=== PATIENT | male | born 1975 | race Two or more races ===

== ENCOUNTER 2017-08-29 07:21 | Day surgery (SDC) | payer BC, MEDICARE, OTHER ==
[~2017-08-29] VITALS: Ht 170.2 cm; Wt 59.0 kg
[2017-08-29] VITALS (7 sets, daily range): BP systolic 104–129; BP diastolic 66–87
[~2017-08-29 07:21] MED LIST: HYOSCYAMIN0.125 MG/1 PO; LIBRAX1 EA ORAL; LOMOTIL TABLET1 EACH ORAL; LR 1000ml 1,000 ML IVLG SCH; NORCO1 E1 ORAL; [UNRECOGNIZED DRUG - OTHER] PO; [UNRECOGNIZED DRUG - OTHER] PO; [UNRECOGNIZED DRUG - OTHER] PO
--- NOTE | 2017-08-29 07:54 | Anethesia Preoperative Eval ---
Anesthesia Pre-op PMH/ROS General Date of Evaluation: Aug 29, 2017 Time of Evaluation: 07:52 Anesthesiologist: jennifer ASA Score: ASA 3 Mallampati Score Class I : Soft palate, uvula, fauces, pillars visible Class II: Soft palate, uvula, fauces visible Class III: Soft palate, base of uvula visible Class IV: Only hard plate visible Mallampati Classification: Class II Surgeon: brittany Diagnosis: abdominal pain Surgical Procedure: egd/colonoscopy Anesthesia History: none Social History: smoking - former smoker Family History: no anesthesia problems Allergies: Coded Allergies: No Known Allergies (Unverified , 08/29/17) Medications: see eMAR Past Medical History Gastrointestinal/Genitourinary: Reports: other - sclerosing cholangitis, ulcerative colitis, liver disease Neurologic/Psychiatric: Reports: depression/anxiety Anesthesia Pre-op Phys. Exam Physician Exam Last Vital Signs Date Time Temp Pulse Resp B/P (MAP) Pulse Ox O2 Delivery O2 Flow Rate FiO2 08/29/17 08:08 97.9 74 18 104/66 98 Room Air Constitutional: NAD Neurologic: CN 2-12 intact Cardiovascular: RRR Respiratory: CTA Gastrointestinal: S/NT/ND Airway Exam Mallampati Score: Class II MO: full Neck: stiff TMD: 2fb ROM: limited Teeth: intact Anesthesia Pre-op A/P Risk Assessment & Plan Assessment: asa3 Plan: mac Status Change Before Surgery: No Pre-Antibiotics Drug: KERRY Kurtz Aug 29, 2017 07:54
[2017-08-29] MEDS ORDERED: COLESTID ORAL (08:06)
[2017-08-29] MEDS ORDERED: DIPENTUM250 MG PO (08:06)
--- NOTE | 2017-08-29 08:47 | Short Stay Surgery H&P ---
History of Present Illness History of Present Illness Chief Complaint History of colitis, abdominal pains, HPI Arsh Grey is a 42 year old male who was admitted on for Abdominal Pain, Colitis and gere for follow up for status of colitis. Patient History Allergies: Coded Allergies: No Known Allergies (Unverified , 08/29/17) PAST MEDICAL HISTORY: (1) Ulcerative colitis (2) Cholangitis Past Surgeries: Social History: Medication History Scheduled Chlordiazepoxide/Clidinium (Librax Capsule), 1 EA ORAL TID, (Reported) Colestipol HCl (Colestid), 2 GM ORAL DAILY, (Reported) Diphenoxylate Hcl/Atropine (Lomotil Tablet), 2 TAB ORAL TID, (Reported) Hyoscyamine Sulfate (Hyoscyamine Sulfate), 0.125 MG PO DAILY, (Reported) Olsalazine Sodium (Dipentum), 500 MG PO DAILY, (Reported) [eurso forte], 500 MG PO DAILY, (Reported) Scheduled PRN Acetaminophen/Hydrocodone ([place]averstraw 7.5-325 Tablet), 1 TAB ORAL Q6H PRN for For Pain, (Reported) Review of Systems Cardiovascular: Reports: no symptoms Respiratory: Reports: no symptoms Skeletal: Reports: no symptoms Gastrointestinal: Reports: other Neurologic: Reports: no symptoms Endocrine: Reports: no symptoms Hematologic: Reports: no symptoms Physical Exam Vital Signs Last Vital Signs Date Time Temp Pulse Resp B/P (MAP) Pulse Ox O2 Delivery O2 Flow Rate FiO2 08/29/17 08:08 97.9 74 18 104/66 98 Room Air Skin: normal HENT: normal Heart: normal Lungs: normal Abdomen: abnormal Extremities: normal Genitourinary: normal Plan Plan of Care Upper and lower GI endoscopy and biopsies Preop Interventions None. Summary of Findings See the reports Final Diagnosis: Attestation Are the patient's medical conditions optimized for surgery? Attestation Response: yes ADRIANA ROSA Aug 29, 2017 08:47
--- NOTE | 2017-08-29 08:48 | Pre-Procedure Note/Attestation ---
Pre-Procedure Note/Attestation Complete Prior to Procedure Planned Procedure: left Procedure Narrative: Endoscopic examination of the upper and lower GI tract. Indications for Procedure Pre-Operative Diagnosis: R/O colitis/cancer/peptic ulcer Attestation I attest that I discussed the nature of the procedure; its benefits; risks and complications; and alternatives (and the risks and benefits of such alternatives ), prior to the procedure, with the patient (or the patient's legal financial services sales representative). I attest that, if there was a reasonable possibility of needing a blood transfusion, the patient (or the patient's legal financial services sales representative) was given the [place] Department [employer] standardized written summary, pursuant to the Daljit Ke Blood Safety Act ([place] Health and Safety Code # 1645, as amended). I attest that I re-evaluated the patient just prior to the surgery and that there has been no change in the patient's H&P, except as documented below: MOESAID Aug 29, 2017 08:48
[2017-08-29] MEDS ORDERED: Propofol 200mg/20ml IV ONE (09:00)
[2017-08-29] MEDS ORDERED: LR 1000ml ONE (09:00)
[2017-08-29] MEDS ORDERED: Lidocaine 1% MPF 10mg/ml 5ml ONE (09:00)
[2017-08-29] MEDS ORDERED: LR 1000ml 1,000 ML IVLG SCH (09:13)
[2017-08-29] MEDS ORDERED: Atropine Inj 1mg/10ml Syr IV PRN (09:15)
[2017-08-29] MEDS ORDERED: Midazolam 2mg/2ml Inj IVP PRN (09:15)
[2017-08-29] MEDS ORDERED: fentaNYL 100 mcg/2 mL IV PRN (09:15)
[2017-08-29] MEDS ORDERED: DiphenhydrAMINE 50mg/ml Inj IVP PRN (09:15)
--- NOTE | 2017-08-29 09:32 | Endoscopy Procedure Note ---
Endoscopy Procedure Note Indication for Procedure: ABDOMINAL PAIN/ HISTORY OF COLITIS Procedures Performed: EGD - Compltely normal upper GI endoscopy, random biopsy done from gastric body., colonoscopy - Severe colitis with stricture at splenic flexure and large polypoid lesion at 70 Am from anal opening highly suggestive of CA biopsied. Multiple biopsies obtained from left colon Scope could not be advance beyond splenic flexure due to stricture. Patient is being referred for total colectomy. Specimen: yes Pt Tolerated Procedure Well: Yes Estimated Blood Loss: minimal Anesthesiologist: Dr. Cardona Anesthesia: moderate sedation Medication Given: see anesthesia record Implant(s) used?: No 50 yrs or older w/o bx or poly: No 10yrs. F/U not recommended: Yes 10 yrs. F/U needed: Yes 18 years or older w/prev. colo: No <3yrs. since last colonoscopy: No Med reason:<3 yrs.: System Reason:<3 yrs.: Last colonoscopy >= to 3yrs: No ADRIANA ROSA Aug 29, 2017 09:32
--- NOTE | 2017-08-29 09:33 | Discharge Instructions ---
Discharge Instructions Discharge Instructions Follow up with: See the docotor in office after one week For Congestive Heart Failure Reminder Report to your physician any weight gain of 5 pounds or more in one week. ADRIANA ROSA Aug 29, 2017 09:33
--- NOTE | 2017-08-29 09:49 | Immediate Post-Op Evaluation ---
Immediate Post-Op Evalulation Immediate Post-Op Evalulation Procedure: egd/colonoscopy Date of Evaluation: Aug 29, 2017 Time of Evaluation: 09:49 IV Fluids: 550ml lr Blood Products: none Estimated Blood Loss: negligible Blood Pressure Systolic: 129 Blood Pressure Diastolic: 85 Pulse Rate: 83 Respiratory Rate: 18 O2 Sat by Pulse Oximetry: 100 Temperature (Fahrenheit): 98.7 Pain Score (1-10): 0 Nausea: No Vomiting: No Complications none Patient Status: awake, reacts, patent Hydration Status: adequate Drug: KERRY Kurtz Aug 29, 2017 09:49
--- NOTE | 2017-08-29 09:51 | 48 Hour Post Anesthesia Eval ---
Post Anesthesia Evaluation Procedure: egd/colonoscopy Date of Evaluation: Aug 29, 2017 Time of Evaluation: 09:51 Blood Pressure Systolic: 122 0: 77 Pulse Rate: 83 Respiratory Rate: 18 Temperature (Fahrenheit): 98.7 O2 Sat by Pulse Oximetry: 99 Airway: patent Nausea: No Vomiting: No Pain Intensity: 0 Hydration Status: adequate Cardiopulmonary Status: stable Mental Status/LOC: patient returned to baseline Post-Anesthesia Complications: none Follow-up care needed: N/A KERRY THURMAN Aug 29, 2017 09:51
--- NOTE | 2017-08-29 22:30 | Procedure Note ---
DATE OF PROCEDURE: 08/29/2017 PROCEDURE: Left colonoscopy with multiple biopsies. SURGEON: Nica Parikh M.D. PREOPERATIVE DIAGNOSIS: History of chronic colitis. POSTOPERATIVE DIAGNOSES: 1. Significantly severe left colitis with the evidence of large polypoid lesion at the level of 70 cm from anal opening, highly suspicious of underlying adenocarcinoma. 2. Multiple stricture in the left colon and the scope could not be passed through the splenic flexure. Multiple biopsies were also obtained from left colon. MEDICATION USED: Per Dr. Steele, anesthesiologist. INSTRUMENT: GIF Olympus video colonoscope. DESCRIPTION OF PROCEDURE: The patient after arriving in the endoscopy unit, was told about risks and benefits of the procedure, which he accepted and signed informed consent. He was then put on the left lateral decubitus position. After adequate IV sedation, the scope was gently passed through the anal opening, introduced into the rectum, anorectal area. This area revealed significantly inflamed with easy friability and noted numerous exudative process all over consistent with severe colitis. The scope was gradually passed through a rather redundant and strictured colon in different areas, which revealed evidence of continuation of severe colitis. Finally, it reached to the level of 70 centimeter from the anal area, whereby a very large multilobulated polyp was found, which was highly suggestive of underlying adenocarcinoma. Multiple biopsies from this lesion obtained, which was quite friable as well. Finally, the scope was passed through the area through very significantly stricture section of the left colon, only was able to reach the splenic flexure. After at this point, the scope could not be advanced. As I mentioned, multiple biopsies from different parts of the colon was obtained and subsequently, the procedure was terminated. The patient is going to be referred with total colectomy with possible rectal anal pouch to the general surgeons. Nica Parikh M.D. DR: MADDI JOB#: [id number] CC:
--- NOTE | 2017-08-29 22:30 | Procedure Note ---
DATE OF PROCEDURE: 08/29/2017 SURGEON: Nica Parikh M.D. PROCEDURE: Esophagogastroduodenoscopy with biopsy. PREOPERATIVE DIAGNOSIS: Abdominal pain. POSTOPERATIVE DIAGNOSIS: Completely normal upper gastrointestinal endoscopy. Biopsy was taken per random per gastric body. MEDICATION USED: Per Dr. Cardona, anesthesiologist. INSTRUMENT: GIF Olympus upper GI video endoscope. DESCRIPTION OF PROCEDURE: The patient after arriving in the endoscopy unit, was told about risks and benefits of the procedure, which he accepted and signed informed consent. At this point, he was put on the left lateral decubitus position. After adequate IV sedation, the scope was gently passed through the cricopharyngeal area, it was lodged into the upper esophagus, and gradually advanced towards gastroesophageal junction. The entire length of the esophagus was normal. No evidence of any abnormality was found. GE junction also looked normal. At this time, the scope was advanced into the stomach. Gastric cavity was distended. The areas of the fundus and the body and the antrum were examined and there was no any particular abnormality, evidence of major gastritis, polyps, tumors etc. One random biopsy from gastric body obtained. Subsequently, the scope was passed through the pylorus. First and second portion of duodenum were found to be completely normal. Finally, the scope was pulled out and the procedure was terminated. The patient tolerated the procedure well. Nica Parikh M.D. DR: MADDI JOB#: [id number] CC:
== END 2017-08-29 11:00 | disposition home or self-care (01) ==
LOC: GAS 07:21
DX: K63.5 Polyp of colon (principal); K51.90 Ulcerative colitis, unspecified, without complications; F32.9 Major depressive disorder, single episode, unspecified; F41.9 Anxiety disorder, unspecified; Z87.891 Personal history of nicotine dependence; K29.50 Unspecified chronic gastritis without bleeding; B96.81 Helicobacter pylori [H. pylori] as the cause of diseases classified elsewhere
CPT/HCPCS: 43239; 45380; J2704; J7120; 94003; 94150

== ENCOUNTER 2017-10-08 08:13 | Outpatient (CLI) | payer MEDICARE ==
[~2017-10-08 08:13] MED LIST changes: +COLESTID ORAL; +DIPENTUM250 MG PO; -LR 1000ml 1,000 ML IVLG SCH
--- NOTE | 2017-10-08 15:39 | Diagnostic Imaging Report ---
Clinical Indication: Abdominal pain Technique: Patient given oral and rectal contrast. IV administration nonionic contrast. Venous phase spiral acquisition obtained through the abdomen and pelvis. Multiplanar reconstructions were generated. Total dose length product 499.55 mGycm. CTDIvol(s) 10.18 mGy. Dose reduction achieved using automated exposure control Comparison: none Findings: There is some image degradation due to respiratory motion artifact Somewhat unusual appearance to the colon, which is diffusely upper limits of normal caliber and featureless. There is wall thickening of portions of the sigmoid and of the descending colon. Unusual distribution of contrast is seen in the splenic flexure, where there is low attenuation material between the contrast column and the colonic wall. Suspect that this is wall adherent stool. No evidence of surrounding abscess. No evidence of diverticulosis or diverticulitis. Pericolonic nodes in the along the course of the colon are prominent. The appendix is enlarged, measuring 15 mm diameter near the bulbous tip. There is no infiltration of the periappendiceal fat, however. It contains a small amount of fluid centrally. No contrast is seen within the appendix. No small bowel distention or small bowel wall thickening. No free or loculated intraperitoneal air or fluid is evident. The terminal ileum wall is not thickened. The liver is mildly hypoattenuating. Small subcentimeter low-attenuation lesions are seen scattered throughout the liver. There are questionably tiny gallstones in the gallbladder neck. The gallbladder is mildly distended but not thick walled. No biliary ductal dilatation. The pancreas, spleen, adrenals, kidneys are unremarkable. No retroperitoneal or mesenteric mass or adenopathy. No pelvic mass or adenopathy. The included lung bases demonstrate some atelectasis or scarring on the left. The bones are unremarkable. Impression: Generalized featureless appearance of the colon with areas of wall thickening. Per discussion with referring physician, patient has long-standing history of ulcerative colitis. Findings are therefore presumably related to such. There is also borderline pericolonic adenopathy, presumably related to the ulcerative colitis Enlarged appendix, particularly the bulbous tip, with out evidence of periappendiceal inflammation. Per discussion referring physician, patient is asymptomatic with regards to the right lower quadrant, so findings most likely represent appendiceal involvement with ulcerative colitis Mild fatty hepatic change Subcentimeter low-attenuation hepatic lesions, too small to characterize, most likely benign simple cysts or bile hamartomas. No further follow-up necessary Equivocal cholelithiasis Left basilar pulmonary parenchymal scarring or atelectasis. Findings discussed by phone with Dr. Hodge at the time of interpretation The CT scanner at [facility] is accredited by the [employer] and the scans are performed using protocols designed to limit radiation exposure to as low as reasonably achievable to attain images of sufficient resolution adequate for diagnostic evaluation.
== END 2017-10-08 10:13 | disposition home or self-care (01) ==
LOC: CAT 08:13
DX: R10.9 Unspecified abdominal pain (principal); K80.20 Calculus of gallbladder without cholecystitis without obstruction; K51.90 Ulcerative colitis, unspecified, without complications
CPT/HCPCS: 74177; Q9967

== ENCOUNTER 2017-12-24 09:52 | Inpatient (IN) | payer MEDICARE ==
[~2017-12-24] VITALS: Ht 170.2 cm; Wt 53.1 kg
[2017-12-24] MEDS ORDERED: Heparin 2000 units/Ns 1000ml INJ PRN (10:00)
[2017-12-24] MEDS ORDERED: Lidocaine 1% Plain 30 ml INJ PRN (10:00)
[2017-12-24 10:30] VITALS: BP 125/85
[2017-12-24 10:47] LABS: BASOPHILS % (AUTO) 1.5 % (0.0-2.0); EOSINOPHILS % (AUTO) 2.5 % (0.0-3.0); HEMATOCRIT 33.1 % (42.0-52.0); HEMOGLOBIN 10.7 G/DL (14.2-18.0); LYMPHOCYTES % (AUTO) 33.7 % (20.0-45.0); MEAN CORPUSCULAR VOLUME 85 FL (80-99); MONOCYTES % (AUTO) 9.7 % (1.0-10.0); NEUTROPHILS % (AUTO) 52.6 % (45.0-75.0); PLATELET COUNT 390 K/UL (150-450); RED BLOOD COUNT 3.91 M/UL (4.70-6.10); RED CELL DISTRIBUTION WIDTH 12.8 % (11.6-14.8); WHITE BLOOD COUNT 7.2 K/UL (4.8-10.8)
[2017-12-24 11:08] LABS: ALANINE AMINOTRANSFERASE 66 U/L (12-78); ALBUMIN 3.3 G/DL (3.4-5.0); ALBUMIN/GLOBULIN RATIO 0.8 (1.0-2.7); ALKALINE PHOSPHATASE 551 U/L (46-116); ANION GAP 9 mmol/L (5-15); ASPARTATE AMINO TRANSFERASE 59 U/L (15-37); BILIRUBIN,TOTAL 0.3 MG/DL (0.2-1.0); BLOOD UREA NITROGEN 12 mg/dL (7-18); CALCIUM 8.6 MG/DL (8.5-10.1); CARBON DIOXIDE 28 MMOL/L (21-32); CHLORIDE 104 MMOL/L (98-107); CREATININE 0.8 MG/DL (0.55-1.30); POTASSIUM 3.1 MMOL/L (3.5-5.1); SODIUM 140 MMOL/L (136-145)
[2017-12-24] MEDS: Neomycin Sulfate 500mg Tab ORAL SCH ×3 (11:39→20:11)
[2017-12-24 12:00] VITALS: BP 137/91
[2017-12-24] MEDS ORDERED: Nulytely 4L ORAL SCH (12:00)
[2017-12-24 12:10] LABS: APPEARANCE,URINE CLEAR; BILIRUBIN, URINE NEGATIVE (NEGATIVE); GLUCOSE, URINE (UA) NEGATIVE (NEGATIVE); KETONES,URINE NEGATIVE (NEGATIVE); LEUKOCYTE ESTERASE ,URINE NEGATIVE (NEGATIVE); NITRITE,URINE NEGATIVE (NEGATIVE); PH,URINE 6 (4.5-8.0); PROTEIN,URINE NEGATIVE (NEGATIVE); UROBILINOGEN,URINE NORMAL MG/DL (0.0-1.0)
[2017-12-24 12:15] LABS: COLOR,URINE YELLOW
--- NOTE | 2017-12-24 14:59 | Diagnostic Imaging Report ---
Indication: Chest pain Comparison: None A single view chest radiograph was obtained. Findings: Cardiomediastinal appearance is within normal limits for age. Pulmonary vascularity is appropriate. The diaphragmatic contour is smooth and costophrenic angles are sharp. No pleural effusions are identified. The bones are unremarkable. Impression: No acute findings
--- NOTE | 2017-12-24 15:54 | Anethesia Preoperative Eval ---
Anesthesia Pre-op PMH/ROS General Date of Evaluation: December 24, 2017 Time of Evaluation: 15:50 Anesthesiologist: ASA Score: ASA 2 Mallampati Score Class I : Soft palate, uvula, fauces, pillars visible Class II: Soft palate, uvula, fauces visible Class III: Soft palate, base of uvula visible Class IV: Only hard plate visible Mallampati Classification: Class II Surgeon: lewis Diagnosis: ulcerative colitis Surgical Procedure: laparoscopic total colectomy, creation of judge pouch Anesthesia History: none Family History: no anesthesia problems Allergies: Coded Allergies: No Known Allergies (Unverified , 08/29/17) Medications: see eMAR Past Medical History Cardiovascular: Denies: HTN, CAD, [place], valve dz, arrhythmia, other Pulmonary: Denies: asthma, COPD, ELIAZAR, other Gastrointestinal/Genitourinary: Reports: other - ulcerative colitis, sclerosing cholangitis; Denies: GERD, CRI, ESRD Neurologic/Psychiatric: Denies: dementia, CVA, depression/anxiety, TIA, other Endocrine: Denies: DM, hypothyroidism, steroids, other HEENT: Denies: cataract (L), cataract (R), glaucoma, [place] (L), [place] (R), other Hematology/Immune: Reports: anemia - hct 33.1; Denies: DVT, bleeding disorder, other Anesthesia Pre-op Phys. Exam Physician Exam Last Vital Signs Date Time Temp Pulse Resp B/P (MAP) Pulse Ox O2 Delivery O2 Flow Rate FiO2 12/24/17 12:00 98.0 69 20 137/91 100 Room Air 98.0 Constitutional: NAD Neurologic: CN 2-12 intact Cardiovascular: RRR Respiratory: CTA Airway Exam Mallampati Score: Class I MO: full ROM: full Teeth: intact Dentures: no upper, no lower Anesthesia Pre-op A/P Labs Hematology Test 12/24/17 10:34 White Blood Count 7.2 K/UL (4.8-10.8) Red Blood Count 3.91 M/UL (4.70-6.10) L Hemoglobin 10.7 G/DL (14.2-18.0) L Hematocrit 33.1 % (42.0-52.0) L Mean Corpuscular Volume 85 FL (80-99) Mean Corpuscular Hemoglobin 27.4 PG (27.0-31.0) Mean Corpuscular Hemoglobin Concent 32.4 G/DL (32.0-36.0) Red Cell Distribution Width 12.8 % (11.6-14.8) Platelet Count 390 K/UL (150-450) Mean Platelet Volume 7.0 FL (6.5-10.1) Neutrophils (%) (Auto) 52.6 % (45.0-75.0) Lymphocytes (%) (Auto) 33.7 % (20.0-45.0) Monocytes (%) (Auto) 9.7 % (1.0-10.0) Eosinophils (%) (Auto) 2.5 % (0.0-3.0) Basophils (%) (Auto) 1.5 % (0.0-2.0) Coagulation Test 12/24/17 10:34 Prothrombin Time 10.0 SEC (9.30-11.50) Prothromb Time International Ratio 1.0 (0.9-1.1) Activated Partial Thromboplast Time 26 SEC (23-33) Chemistry Test 12/24/17 10:34 Sodium Level 140 MMOL/L (136-145) Potassium Level 3.1 MMOL/L (3.5-5.1) L Chloride Level 104 MMOL/L (98-107) Carbon Dioxide Level 28 MMOL/L (21-32) Anion Gap 9 mmol/L (5-15) Blood Urea Nitrogen 12 mg/dL (7-18) Creatinine 0.8 MG/DL (0.55-1.30) Estimat Glomerular Filtration Rate > 60 mL/min (>60) Glucose Level 93 MG/DL (74-106) Calcium Level 8.6 MG/DL (8.5-10.1) Total Bilirubin 0.3 MG/DL (0.2-1.0) Aspartate Amino Transf (AST/SGOT) 59 U/L (15-37) H Alanine Aminotransferase (ALT/SGPT) 66 U/L (12-78) Alkaline Phosphatase 551 U/L (46-116) H Total Protein 7.5 G/DL (6.4-8.2) Albumin 3.3 G/DL (3.4-5.0) L Globulin 4.2 g/dL Albumin/Globulin Ratio 0.8 (1.0-2.7) L Risk Assessment & Plan Assessment: ASA 2, okay to proceed Plan: Myra Vicente M.D. December 24, 2017 15:54
[2017-12-24 16:00] VITALS: BP 127/89
--- NOTE | 2017-12-24 16:05 | Diagnostic Imaging Report ---
Indication: watermaster venous access Findings: After the indications, procedure, risks, complications, and alternatives of the procedure were explained, written informed consent was obtained. The left upper extremity was prepped with alcohol. All elements of maximal sterile barrier technique were followed including usage of a cap, mask, sterile gown, sterile gloves, hand hygiene and a large sterile sheet. Sonographic evaluation of the upper extremity was performed demonstrating a patent and compressible basilic vein. Access was obtained under real-time ultrasound guidance (with utilization of sterile gel and sterile probe cover) and digital image was saved and archived. An .018 wire was introduced. Needle exchanged for a 5 Azeri peel-away sheath. Measurements were obtained. A 5 Azeri dual-lumen Power PICC line catheter was cut to 45 cm and introduced over the wire. Peel-away sheath and wire were removed.Catheter was secured to the skin using 2-0 Prolene suture. Both ports aspirate and flush easily. Fluoroscopic images show distal tip in the superior vena cava. Total fluoroscopic time 0.2 minutes Impression: Successful placement of an upper extremity PICC line catheter
[2017-12-24] MEDS: D5 1/2NS w/KCl 20mEq 1,000 ML IV SCH (17:21)
[2017-12-24 20:00] VITALS: BP 122/77
[2017-12-24] MEDS ORDERED: Dyna-Hex 2% Top Sol 2oz TOPIC SCH (20:00)
[2017-12-25] VITALS (16 sets, daily range): BP systolic 100–127; BP diastolic 65–85
[2017-12-25] MEDS: Ampicillin/Sulbactam Sod 3 GM in NS 110 ML IV SCH ×5 (00:07→23:50)
[2017-12-25] MEDS: D5 1/2NS w/KCl 20mEq 1,000 ML IV SCH ×3 (04:30→23:34)
[2017-12-25] MEDS ORDERED: Heparin 5000 units/ml inj SUBQ ONE (07:00)
--- NOTE | 2017-12-25 07:45 | History and Physical ---
History of Present Illness Present Illness HPI Mr. Grey is a very pleasant 42 year old male with history of long standing ulcerative colitis. He was initially referred to me a few months back for surgical evaluation. He has had severe ulcerative colitis for many years which has been managed by his GI Dr. Nica Parikh. During most recent colonoscopy he was noted to have worsening colitis with biopsies demonstrating dysplastic changes. When I first met Mr. Grey he described his long history of dealing with UC. His quality of life has been changed, he has a hard time keeping weight on/ failure to thrive as an adult, and his symptoms are life altering. CT scan was done and demonstrated severe renteria colitis. on exam he was thin but otherwise healthy. his symptoms were constant abdominal discomfort and necessity for multiple BM's per day. his symptoms are so severe that sometimes he cannot leave the house. patient was initially seen in my office and worked up over the course of a few months for surgery which was planned for 12/25/2017. Allergies: Coded Allergies: No Known Allergies (Unverified , 08/29/17) Medication History Scheduled Diphenoxylate Hcl/Atropine (Lomotil Tablet), 2 TAB ORAL TID, (Reported) Hyoscyamine Sulfate (Hyoscyamine Sulfate), 0.125 MG PO TID, (Reported) Olsalazine Sodium (Dipentum), 500 MG PO DAILY, (Reported) [eurso forte], 500 MG PO DAILY, (Reported) Scheduled PRN Acetaminophen/Hydrocodone ([place] 7.5-325 Tablet), 1 TAB ORAL Q6H PRN for For Pain, (Reported) Discontinued Medications Chlordiazepoxide/Clidinium (Librax Capsule), 1 EA ORAL TID, (Reported) Discontinued Reason: Pt stopped taking med Colestipol HCl (Colestid), 2 GM ORAL DAILY, (Reported) Discontinued Reason: Pt stopped taking med Patient History History Provided By: Patient, Medical Record, PMD Healthcare decision maker N Resuscitation status Full Code Advanced Directive on File No Past Medical/Surgical History Past Medical/Surgical History: (1) Ulcerative colitis (2) Sclerosing cholangitis (3) Ulcerative colitis (4) Cholangitis Review of Systems All Other Systems: negative except mentioned in HPI Physical Exam General Appearance: WD/WN, no apparent distress, alert Lines, tubes and drains: PICC HEENT: normocephalic, atraumatic, anicteric, mucous membranes moist, PERRL Neck: normal inspection Respiratory/Chest: lungs clear, normal breath sounds, no respiratory distress, no accessory muscle use Cardiovascular/Chest: normal peripheral pulses, normal rate Abdomen: normal bowel sounds, non tender, soft, no organomegaly, no mass Genitourinary/Rectal: normal genital exam Extremities: normal range of motion, non-tender, normal inspection, no calf tenderness, normal capillary refill, non-pitting Skin Exam: normal pigmentation, warm/dry Neurologic: fisher pound net or trap II-XII grossly normal, alert, oriented x 3 Last 24 Hour Vital Signs Date Time Temp Pulse Resp B/P (MAP) Pulse Ox O2 Delivery O2 Flow Rate FiO2 12/25/17 00:00 97.7 76 18 111/65 98 97.7 12/24/17 20:00 97.6 73 18 122/77 99 97.6 12/24/17 16:00 98.1 70 19 127/89 100 Room Air 98.1 12/24/17 12:00 98.0 69 20 137/91 100 Room Air 98.0 12/24/17 10:30 97.8 71 18 125/85 100 Room Air 97.8 Intake and Output 12/24/17 12/25/17 19:00 07:00 Intake Total 700 ml 5010 ml Output Total 500 ml 2100 ml Balance 200 ml 2910 ml Intake Oral 600 ml IV Total 100 ml 1730 ml Other 3280 ml Output Urine Total 500 ml 950 ml Stool Total 1150 ml # Voids 2 5 # Bowel Movements 1 11 Laboratory Tests Test 12/24/17 10:34 12/24/17 11:40 White Blood Count 7.2 K/UL (4.8-10.8) Red Blood Count 3.91 M/UL (4.70-6.10) L Hemoglobin 10.7 G/DL (14.2-18.0) L Hematocrit 33.1 % (42.0-52.0) L Mean Corpuscular Volume 85 FL (80-99) Mean Corpuscular Hemoglobin 27.4 PG (27.0-31.0) Mean Corpuscular Hemoglobin Concent 32.4 G/DL (32.0-36.0) Red Cell Distribution Width 12.8 % (11.6-14.8) Platelet Count 390 K/UL (150-450) Mean Platelet Volume 7.0 FL (6.5-10.1) Neutrophils (%) (Auto) 52.6 % (45.0-75.0) Lymphocytes (%) (Auto) 33.7 % (20.0-45.0) Monocytes (%) (Auto) 9.7 % (1.0-10.0) Eosinophils (%) (Auto) 2.5 % (0.0-3.0) Basophils (%) (Auto) 1.5 % (0.0-2.0) Prothrombin Time 10.0 SEC (9.30-11.50) Prothromb Time International Ratio 1.0 (0.9-1.1) Activated Partial Thromboplast Time 26 SEC (23-33) Sodium Level 140 MMOL/L (136-145) Potassium Level 3.1 MMOL/L (3.5-5.1) L Chloride Level 104 MMOL/L (98-107) Carbon Dioxide Level 28 MMOL/L (21-32) Anion Gap 9 mmol/L (5-15) Blood Urea Nitrogen 12 mg/dL (7-18) Creatinine 0.8 MG/DL (0.55-1.30) Estimat Glomerular Filtration Rate > 60 mL/min (>60) Glucose Level 93 MG/DL (74-106) Calcium Level 8.6 MG/DL (8.5-10.1) Total Bilirubin 0.3 MG/DL (0.2-1.0) Aspartate Amino Transf (AST/SGOT) 59 U/L (15-37) H Alanine Aminotransferase (ALT/SGPT) 66 U/L (12-78) Alkaline Phosphatase 551 U/L (46-116) H Total Protein 7.5 G/DL (6.4-8.2) Albumin 3.3 G/DL (3.4-5.0) L Globulin 4.2 g/dL Albumin/Globulin Ratio 0.8 (1.0-2.7) L Urine Color Yellow Urine Appearance Clear Urine pH 6 (4.5-8.0) Urine Specific [place] 1.020 (1.005-1.035) Urine Protein Negative (NEGATIVE) Urine Glucose (UA) Negative (NEGATIVE) Urine Ketones Negative (NEGATIVE) Urine Occult Blood Negative (NEGATIVE) Urine Nitrite Negative (NEGATIVE) Urine Bilirubin Negative (NEGATIVE) Urine Urobilinogen Normal MG/DL (0.0-1.0) Urine Leukocyte Esterase Negative (NEGATIVE) Height (Feet): 5 Height (Inches): 7.00 Weight (Pounds): 120 Medications Current Medications Medications (Trade) Dose Ordered Sig/Felipe Route PRN Reason Start Time Stop Time Status Last Admin Dose Admin Ampicillin Sodium/ Sulbactam Sodium 3 gm/Sodium Chloride 110 ml @ 220 mls/hr EVERY 6 HOURS IV 12/25/17 00:00 01/01/18 00:00 12/25/17 05:23 Chlorhexidine Gluconate (Renée-Hex 2%) 1 applic DAILY@2000 TOPIC 12/24/17 20:00 01/23/18 19:59 12/24/17 20:11 Dextrose/ Electrolytes 1,000 ml @ 100 mls/hr Q10H IV 12/24/17 18:00 01/23/18 17:59 12/25/17 04:30 Heparin Sodium/ Sodium Chloride (Heparin 2000 units/Ns 1000ml premix) 2,000 unit ONCE PRN INJ PICC LINE INSERTION 12/24/17 10:00 01/23/18 09:59 Lidocaine HCl (Xylocaine 1% 30ml) 30 ml ONCE PRN INJ PICC LINE INSERTION 12/24/17 10:00 01/23/18 09:59 Metronidazole 100 ml @ 100 mls/hr EVERY 6 HOURS IV 12/25/17 00:00 01/01/18 00:00 12/25/17 05:25 Ondansetron HCl (Zofran) 4 mg Q4H PRN IVP Nausea & Vomiting 12/24/17 10:00 01/23/18 09:59 Potassium Chloride (K-Dur) 40 meq ONCE ORAL 12/24/17 13:00 01/23/18 12:59 12/24/17 13:06 Zolpidem Tartrate (Ambien) 5 mg HSPRN PRN ORAL Insomnia 12/24/17 11:15 12/31/17 11:14 Assessment/Plan Problem List: (1) Ulcerative colitis Assessment & Plan: severe ulcerative colitis with dysplasia. multiple prior colonoscopies. most recent with worsening pancolitis and dysplasia. over the course of the past few months we have discussed treatment options. after all options were presented to Mr. Grey, he has expressed desire for continent ileostomy. -to OR 12/25/2017 -pre op 12/24/2017 -PICC + TPN -NPO -IV fluids -Prep and Abx -IV Abx -Consent ICD Codes: K51.919 - Ulcerative colitis SNOMED: [id number] Qualifiers: Qualified Codes: K51.018 - Ulcerative (chronic) pancolitis with other complication Status: stable Gareth Hodge December 25, 2017 07:45
--- NOTE | 2017-12-25 07:46 | Pre-Procedure Note/Attestation ---
Pre-Procedure Note/Attestation Complete Prior to Procedure Planned Procedure: not applicable Procedure Narrative: Laparoscopic assisted total proctocolectomy, APR, BCIR Indications for Procedure Pre-Operative Diagnosis: ulcerative colitis with dysplasia Attestation I attest that I discussed the nature of the procedure; its benefits; risks and complications; and alternatives (and the risks and benefits of such alternatives ), prior to the procedure, with the patient (or the patient's legal billing customer service representative). I attest that, if there was a reasonable possibility of needing a blood transfusion, the patient (or the patient's legal billing customer service representative) was given the [facility] standardized written summary, pursuant to the [place] Blood Safety Act ([place] Health and Safety Code # 1645, as amended). I attest that I re-evaluated the patient just prior to the surgery and that there has been no change in the patient's H&P, except as documented below: Gareth Hodge December 25, 2017 07:46
[2017-12-25] MEDS ORDERED: Lidocaine 1% Plain 30 ml INJ ONE ×2 (08:26→11:35)
[2017-12-25] MEDS ORDERED: Lidocaine 1% MPF 10mg/ml 5ml ONE (08:33)
[2017-12-25] MEDS ORDERED: Sodium Chloride 10ml vial INJ ONE (08:33)
[2017-12-25] MEDS ORDERED: Propofol 200mg/20ml IV ONE (08:33)
[2017-12-25] MEDS ORDERED: LR 1000ml 1,000 ML IVLG SCH (08:42)
[2017-12-25] MEDS ORDERED: Atropine Inj 1mg/10ml Syr IV PRN (08:45)
[2017-12-25] MEDS ORDERED: DiphenhydrAMINE 50mg/ml Inj IVP PRN ×2 (08:45→14:45)
[2017-12-25] MEDS ORDERED: Midazolam 2mg/2ml Inj IVP PRN (08:45)
[2017-12-25] MEDS ORDERED: Labetalol 5mg/ml 20ml vial IV PRN (08:45)
[2017-12-25] MEDS ORDERED: Ketorolac 30mg Inj IV PRN ×2 (08:45)
[2017-12-25] MEDS ORDERED: oxyCODONE HCL/Acetaminophen 5/325mg ORAL PRN (08:45)
[2017-12-25] MEDS ORDERED: Metoclopramide 10mg/2ml Inj IVP PRN (08:45)
[2017-12-25] MEDS ORDERED: LORazepam Inj 2mg/ml 1ml IV PRN (08:45)
[2017-12-25] MEDS ORDERED: Norco 5mg/325mg tab ORAL PRN (08:45)
[2017-12-25] MEDS ORDERED: fentaNYL 100 mcg/2 mL IV PRN (08:45)
[2017-12-25] MEDS ORDERED: HYDROcodone/Acetamin 7.5/325 tab ORAL PRN (08:45)
[2017-12-25] MEDS ORDERED: Bupivacaine 0.25% Inj 30ml INJ ONE (08:48)
[2017-12-25] MEDS ORDERED: Bacitracin 50000 Units Vial ONE (08:48)
[2017-12-25] MEDS ORDERED: NeoSporin Gu Irrig 1ml Amp IRRIG ONE (08:48)
[2017-12-25] MEDS ORDERED: EPINEPHrine 1mg/1ml Amp ONE (08:48)
[2017-12-25] MEDS ORDERED: Dexamethasone 4mg/ml vial ONE (08:52)
[2017-12-25] MEDS ORDERED: fentaNYL 100 mcg/2 mL IV ONE ×2 (08:56→10:45)
[2017-12-25] MEDS ORDERED: Heparin 5000 units/ml inj SUBQ SCH (09:00)
[2017-12-25] MEDS ORDERED: Zemuron 50mg/5ml Inj IV ONE (09:03)
--- NOTE | 2017-12-25 09:11 | Immediate Post-Op Evaluation ---
Immediate Post-Op Evalulation Immediate Post-Op Evalulation Procedure: Laparoscopic Assisted Procto-Colectomy Date of Evaluation: December 25, 2017 Time of Evaluation: 13:40 IV Fluids: 1200 LR Blood Products: 0 Estimated Blood Loss: 50 Urinary Output: 400 Blood Pressure Systolic: 118 Blood Pressure Diastolic: 77 Pulse Rate: 91 Respiratory Rate: 16 O2 Sat by Pulse Oximetry: 100 Temperature (Fahrenheit): 97.6 Pain Score (1-10): 3 Nausea: No Vomiting: No Complications 0 Patient Status: awake, reacts, patent, extubated, none Hydration Status: adequate Drug: Received Scheduled Antibiotics Given Within 1 Hr of Incision: Yes Time Given: 09:01 Luciano Kim MD December 25, 2017 09:11
[2017-12-25] MEDS ORDERED: Acetaminophen (Non formulary) 100 ML IV ONE (10:15)
[2017-12-25] MEDS ORDERED: Metoprolol 5mg/5ml Inj ONE (13:17)
[2017-12-25] MEDS: Hydromorphone 0.5mg/0.5ml inj IVP PRN ×2 (13:44→14:39)
[2017-12-25] MEDS ORDERED: PCA Morphine 1mg/ml 30 ML IV ONE (14:40)
[2017-12-25] MEDS ORDERED: Milk of Magnesia 30ml Ud ORAL PRN (14:45)
[2017-12-25] MEDS: PCA Morphine 1mg/ml 30 ML IV PRN (14:47)
[2017-12-25] MEDS ORDERED: Rate Change PCA 1 Each MISC PRN (15:00)
[2017-12-25] MEDS ORDERED: Naloxone 0.4mg/ml Inj IVP PRN (15:00)
--- NOTE | 2017-12-25 15:22 | Brief Operative Note ---
Immediate Post Operative Note Operative Note Pre-op Diagnosis: ulcerative colitis with dysplasia Procedure: 1. total abdominal colectomy 2. brook ileostomy creation Surgeon: lewis Pasta Press Operator: alberto Anesthesiologist: hailey Anesthesia: general Specimen: yes Complications: none Condition: stable Fluids: see records Estimated Blood Loss: volume - 100 Drains: none Implant(s) used?: No Gareth Hodge December 25, 2017 15:22
[2017-12-25] MEDS ORDERED: PCA Education Pamphlet MISC ONE (16:00)
--- NOTE | 2017-12-25 18:42 | Consultation ---
History of Present Illness General Date patient seen: December 25, 2017 Present Illness HPI 42 y/o M with hx of long standing severe UC, sclerosing cholangitis admitted electively for surgical intervention for his severe UC. Patient had failure to thrive, a recent colonoscopy which showed worsening colitis and biopsies demonstrating dysplastic changes. CT abd/p showed severe pancolitis. Patient underwent total abdominal colectomy and brook ileostomy creation today. Afebrile, no leukocytosis Started on periop Unasyn and Flagyl. Allergies: Coded Allergies: No Known Allergies (Unverified , 08/29/17) Medication History Scheduled Diphenoxylate Hcl/Atropine (Lomotil Tablet), 2 TAB ORAL TID, (Reported) Hyoscyamine Sulfate (Hyoscyamine Sulfate), 0.125 MG PO TID, (Reported) Olsalazine Sodium (Dipentum), 500 MG PO DAILY, (Reported) [eurso forte], 500 MG PO DAILY, (Reported) Scheduled PRN Acetaminophen/Hydrocodone ([place] 7.5-325 Tablet), 1 TAB ORAL Q6H PRN for For Pain, (Reported) Discontinued Medications Chlordiazepoxide/Clidinium (Librax Capsule), 1 EA ORAL TID, (Reported) Discontinued Reason: Pt stopped taking med Colestipol HCl (Colestid), 2 GM ORAL DAILY, (Reported) Discontinued Reason: Pt stopped taking med Patient History Healthcare decision maker N Resuscitation status Full Code Advanced Directive on File No Patient History Narrative Pmhx: as above Shx: reviewed Fhx: non contributory Review of Systems All Other Systems: negative except mentioned in HPI Physical Exam Physical Exam Narrative General Appearance: WD/WN, no apparent distress, alert Lines, tubes and drains: PICC HEENT: normocephalic, atraumatic, anicteric, mucous membranes moist, PERRL Neck: normal inspection Respiratory/Chest: lungs clear, normal breath sounds, no respiratory distress, no accessory muscle use Cardiovascular/Chest: normal peripheral pulses, normal rate Abdomen: normal bowel sounds, non tender, soft, no organomegaly, no mass; surgical dressings in place Extremities: normal range of motion, non-tender, normal inspection, no calf tenderness, normal capillary refill, non-pitting Skin Exam: normal pigmentation, warm/dry Neurologic: teachers aide II-XII grossly normal, alert, oriented x 3 Last 24 Hour Vital Signs Date Time Temp Pulse Resp B/P (MAP) Pulse Ox O2 Delivery O2 Flow Rate FiO2 12/25/17 16:20 18 12/25/17 16:00 98.4 110 18 113/77 99 Nasal Cannula 3.0 98.4 12/25/17 15:50 18 12/25/17 15:40 98.7 100 18 120/80 99 Nasal Cannula 3.0 98.7 12/25/17 15:25 98.8 102 18 109/79 100 Nasal Cannula 3.0 98.8 12/25/17 15:25 18 12/25/17 15:12 18 12/25/17 14:57 18 12/25/17 14:47 18 12/25/17 14:47 97.6 12/25/17 14:47 98.8 100 16 110/72 100 Nasal Cannula 3.0 98.8 12/25/17 14:39 97 16 116/73 100 Nasal Cannula 3.0 12/25/17 14:39 97.6 12/25/17 14:26 97.6 12/25/17 14:26 97.6 12/25/17 14:25 88 16 112/75 100 Nasal Cannula 3.0 12/25/17 14:10 89 16 114/77 100 Nasal Cannula 3.0 12/25/17 14:01 84 16 114/75 100 Nasal Cannula 3.0 12/25/17 14:01 97.6 12/25/17 13:44 84 16 127/82 100 Simple Mask 8.0 12/25/17 13:40 91 16 121/80 100 Simple Mask 8.0 12/25/17 13:35 93 16 125/77 100 Simple Mask 8.0 12/25/17 13:31 207.7 91 16 100 12/25/17 13:29 99.6 91 16 118/77 100 Simple Mask 8.0 99.6 12/25/17 08:00 98.2 18 122/85 97 Room Air 98.2 12/25/17 04:00 97.8 71 17 100/74 98 97.8 12/25/17 00:00 97.7 76 18 111/65 98 97.7 12/24/17 20:00 97.6 73 18 122/77 99 97.6 Intake and Output 12/24/17 12/25/17 19:00 07:00 Intake Total 700 ml 5010 ml Output Total 500 ml 2100 ml Balance 200 ml 2910 ml Intake Oral 600 ml IV Total 100 ml 1730 ml Other 3280 ml Output Urine Total 500 ml 950 ml Stool Total 1150 ml # Voids 2 5 # Bowel Movements 1 11 Height (Feet): 5 Height (Inches): 7.00 Weight (Pounds): 120 Medications Current Medications Medications (Trade) Dose Ordered Sig/Felipe Route PRN Reason Start Time Stop Time Status Last Admin Dose Admin Acetaminophen (Tylenol) 650 mg Q6H PRN ORAL MILD BRKTHRU PAIN / T> 100.5 12/25/17 14:45 01/24/18 14:44 Al Hydroxide/Mg Hydroxide (Mylanta) 15 ml Q6H PRN ORAL DYSPEPSIA 12/25/17 14:45 01/24/18 14:44 Ampicillin Sodium/ Sulbactam Sodium 3 gm/Sodium Chloride 110 ml @ 220 mls/hr EVERY 6 HOURS IV 12/25/17 00:00 01/01/18 00:00 12/25/17 17:37 Dextrose/ Electrolytes 1,000 ml @ 100 mls/hr Q10H IV 12/25/17 16:00 01/24/18 15:59 12/25/17 16:48 Diphenhydramine HCl (Benadryl) 12.5 mg Q6H PRN IVP Itching/Pruritis 12/25/17 14:45 01/24/18 14:44 Heparin Sodium/ Sodium Chloride (Heparin 2000 units/Ns 1000ml premix) 2,000 unit ONCE PRN INJ PICC LINE INSERTION 12/24/17 10:00 01/23/18 09:59 Magnesium Hydroxide (Mom) 30 ml BIDPRN PRN ORAL Constipation 12/25/17 14:45 01/24/18 14:44 Metronidazole 100 ml @ 100 mls/hr EVERY 6 HOURS IV 12/25/17 00:00 01/01/18 00:00 12/25/17 17:37 Miscellaneous Medication (DISPATCHER SHIP PILOT Rate Change) 1 ea DAILY PRN MISC rate change 12/25/17 15:00 12/27/17 14:59 Miscellaneous Medication (DISPATCHER SHIP PILOT shift volume) 1 ea Q12HR@0700,1900 MISC 12/25/17 19:00 12/27/17 18:59 Morphine Sulfate 30 ml @ 0 mls/hr Q24H PRN IV For Pain 12/25/17 15:00 12/27/17 14:59 12/25/17 14:47 Morphine Sulfate (Morphine Sulfate) 4 mg Q3H PRN SUBQ Severe Pain (Pain Scale 7-10) 12/25/17 15:00 12/27/17 14:59 Naloxone HCl (Narcan) 0.1 mg Q1M PRN IVP RR<10/min OR SBP<90 mmHg 12/25/17 15:00 12/27/17 14:59 Ondansetron HCl (Zofran) 4 mg Q6H PRN IVP Nausea & Vomiting 12/25/17 14:45 01/24/18 14:44 Zolpidem Tartrate (Ambien) 5 mg HSPRN PRN ORAL Insomnia 12/24/17 11:15 12/31/17 11:14 Assessment/Plan Assessment/Plan Abx: Unasyn 12/25- Flagyl 12/25- Assessment: Long standing Severe UC -s/p total abdominal colectomy and brook ileostomy creation 12/25 FTT 2ry to above Afebrile, no leukocytosis sclerosing cholangitis Plan: -Continue perio-op Unasyn and Flagyl for the next 24-48hrs -f/u cx -Monitor CBC/BMP, temperatures -wound care -aspiration precautions Thank you for this consultation. Will continue to follow along with you. Discussed with RN and Dr Hodge. Fatimah Steen M.D. December 25, 2017 18:42
[2017-12-25] MEDS: PCA shift volume MISC SCH (19:12)
[2017-12-25] MEDS ORDERED: Dextrose 10% 1,000 ML IV PRN (20:00)
[2017-12-25] MEDS ORDERED: Fat Emulsion Iv 20% 216 ML in Tpn 1,560 ML IV SCH (20:00)
[2017-12-25] MEDS ORDERED: Fat Emulsion Iv 20% 250 ML IV SCH (21:00)
--- NOTE | 2017-12-25 21:12 | 48 Hour Post Anesthesia Eval ---
Post Anesthesia Evaluation Procedure: Laparoscopic Assisted Procto-Colectomy Date of Evaluation: December 25, 2017 Time of Evaluation: 21:10 Blood Pressure Systolic: 123 0: 77 Pulse Rate: 108 Respiratory Rate: 18 Temperature (Fahrenheit): 98.4 O2 Sat by Pulse Oximetry: 99 Airway: patent Nausea: No Vomiting: No Pain Intensity: 3 Hydration Status: adequate Cardiopulmonary Status: Stable Mental Status/LOC: patient returned to baseline Follow-up Care/Observations: 0 Post-Anesthesia Complications: 0 Follow-up care needed: N/A Luciano Kim MD December 25, 2017 21:12
[2017-12-26] VITALS: BP 128/82
[2017-12-26] MEDS ORDERED: NovoLOG Insulin Flexpen SUBQ SCH
[2017-12-26] MEDS: PCA Morphine 1mg/ml 30 ML IV PRN ×4 (01:06→21:49)
[2017-12-26] MEDS: Morphine Sulfate 4mg/ml Inj SUBQ PRN ×4 (01:09→20:05)
[2017-12-26] MEDS: D5 1/2NS w/KCl 20mEq 1,000 ML IV SCH ×3 (01:09→21:51)
[2017-12-26 04:00] VITALS: BP 136/72
[2017-12-26] MEDS: Ampicillin/Sulbactam Sod 3 GM in NS 110 ML IV SCH ×3 (05:57→18:45)
[2017-12-26] MEDS: PCA shift volume MISC SCH ×2 (07:00→19:18)
[2017-12-26 08:00] VITALS: BP 111/64
[2017-12-26 08:11] LABS: BASOPHILS % (AUTO) 0.3 % (0.0-2.0); HEMATOCRIT 27.7 % (42.0-52.0); HEMOGLOBIN 9.3 G/DL (14.2-18.0); MEAN CORPUSCULAR VOLUME 83 FL (80-99); MONOCYTES % (AUTO) 8.9 % (1.0-10.0); NEUTROPHILS % (AUTO) 80.9 % (45.0-75.0); PLATELET COUNT 292 K/UL (150-450); RED BLOOD COUNT 3.31 M/UL (4.70-6.10); RED CELL DISTRIBUTION WIDTH 12.7 % (11.6-14.8)
[2017-12-26 08:13] LABS: ANION GAP 7 mmol/L (5-15); BLOOD UREA NITROGEN 8 mg/dL (7-18); CALCIUM 7.9 MG/DL (8.5-10.1); CARBON DIOXIDE 28 MMOL/L (21-32); CHLORIDE 103 MMOL/L (98-107); CREATININE 0.7 MG/DL (0.55-1.30); POTASSIUM 3.4 MMOL/L (3.5-5.1); SODIUM 138 MMOL/L (136-145)
[2017-12-26 10:28] LABS: FERRITIN 22 NG/ML (8-388)
[2017-12-26 10:54] LABS: % IRON SATURATION 8 % (15-50); IRON 26 ug/dL (50-175); TOTAL IRON BINDING CAPACITY 333 ug/dL (250-450)
[2017-12-26 12:00] VITALS: BP 108/69
[2017-12-26] MEDS: Heparin 5000 units/ml inj SUBQ SCH ×2 (14:45→21:50)
[2017-12-26 16:00] VITALS: BP 118/75
--- NOTE | 2017-12-26 17:03 | Infectious Diseases Prog Note ---
Assessment/Plan Assessment/Plan Abx: Unasyn 12/25- Flagyl 12/25- Assessment: Long standing Severe UC -s/p total abdominal colectomy and brook ileostomy creation 12/25 Leukocytosis, likely reactive/post-op FTT 2ry to above Afebrile sclerosing cholangitis Plan: -Continue perio-op Unasyn and Flagyl #3 for the next 24-48 hrs -trend wbc -f/u cx -Monitor CBC/BMP, temperatures -wound care -aspiration precautions Thank you for this consultation. Will continue to follow along with you. Discussed with RN and Dr Hodge. Subjective Allergies: Coded Allergies: No Known Allergies (Unverified , 08/29/17) Subjective afebrile WBC 15 Objective Vital Signs Last 24 Hour Vital Signs Date Time Temp Pulse Resp B/P (MAP) Pulse Ox O2 Delivery O2 Flow Rate FiO2 12/26/17 16:00 97.8 91 20 118/75 97 Room Air 97.8 12/26/17 16:00 20 12/26/17 14:40 20 12/26/17 12:00 20 12/26/17 12:00 98.6 81 20 108/69 96 Room Air 98.6 12/26/17 08:00 20 12/26/17 08:00 98.0 85 20 111/64 98 Room Air 98.0 12/26/17 05:20 98.7 12/26/17 04:29 18 12/26/17 04:00 98.6 95 18 136/72 98 Room Air 98.6 12/26/17 01:36 98.7 12/26/17 01:06 18 12/26/17 01:05 18 12/26/17 00:11 18 12/26/17 00:00 98.7 97 18 128/82 99 Room Air 98.7 12/25/17 21:12 209.1 108 18 99 12/25/17 20:00 98.9 105 18 104/69 99 Nasal Cannula 3.0 98.9 12/25/17 20:00 18 Height (Feet): 5 Height (Inches): 7.00 Weight (Pounds): 120 Objective General Appearance: WD/WN, no apparent distress, alert Lines, tubes and drains: PICC HEENT: normocephalic, atraumatic, anicteric, mucous membranes moist, PERRL Neck: normal inspection Respiratory/Chest: lungs clear, normal breath sounds, no respiratory distress, no accessory muscle use Cardiovascular/Chest: normal peripheral pulses, normal rate Abdomen: normal bowel sounds, non tender, soft, no organomegaly, no mass; surgical dressings in place Extremities: normal range of motion, non-tender, normal inspection, no calf tenderness, normal capillary refill, non-pitting Skin Exam: normal pigmentation, warm/dry Neurologic: pyrotechnics press tender II-XII grossly normal, alert, oriented x 3 Microbiology Date/Time Source Procedure Growth Status 12/24/17 11:25 Nasal Nares MRSA Culture - Final NO METHICILLIN RESISTANT STAPH AUREUS... Complete Laboratory Tests Test 12/26/17 05:10 12/26/17 10:15 White Blood Count 15.0 K/UL (4.8-10.8) H Red Blood Count 3.31 M/UL (4.70-6.10) L Hemoglobin 9.3 G/DL (14.2-18.0) L Hematocrit 27.7 % (42.0-52.0) L Mean Corpuscular Volume 83 FL (80-99) Mean Corpuscular Hemoglobin 28.1 PG (27.0-31.0) Mean Corpuscular Hemoglobin Concent 33.6 G/DL (32.0-36.0) Red Cell Distribution Width 12.7 % (11.6-14.8) Platelet Count 292 K/UL (150-450) Mean Platelet Volume 7.2 FL (6.5-10.1) Neutrophils (%) (Auto) 80.9 % (45.0-75.0) H Lymphocytes (%) (Auto) 10.0 % (20.0-45.0) L Monocytes (%) (Auto) 8.9 % (1.0-10.0) Eosinophils (%) (Auto) 0.0 % (0.0-3.0) Basophils (%) (Auto) 0.3 % (0.0-2.0) Sodium Level 138 MMOL/L (136-145) Potassium Level 3.4 MMOL/L (3.5-5.1) L Chloride Level 103 MMOL/L (98-107) Carbon Dioxide Level 28 MMOL/L (21-32) Anion Gap 7 mmol/L (5-15) Blood Urea Nitrogen 8 mg/dL (7-18) Creatinine 0.7 MG/DL (0.55-1.30) Estimat Glomerular Filtration Rate > 60 mL/min (>60) Glucose Level 122 MG/DL (74-106) H Calcium Level 7.9 MG/DL (8.5-10.1) L Iron Level 26 ug/dL (50-175) L Total Iron Binding Capacity 333 ug/dL (250-450) Percent Iron Saturation 8 % (15-50) L Unsaturated Iron Binding 307 ug/dL (112-346) Ferritin 22 NG/ML (8-388) Folate 5.2 NG/ML (8.6-58.9) L Carcinoembryonic Antigen Pending CA 19-9 Antigen Pending Current Medications Medications (Trade) Dose Ordered Sig/Felipe Route PRN Reason Start Time Stop Time Status Last Admin Dose Admin Acetaminophen (Tylenol) 650 mg Q6H PRN ORAL MILD BRKTHRU PAIN / T> 100.5 12/25/17 14:45 01/24/18 14:44 Al Hydroxide/Mg Hydroxide (Mylanta) 15 ml Q6H PRN ORAL DYSPEPSIA 12/25/17 14:45 01/24/18 14:44 Ampicillin Sodium/ Sulbactam Sodium 3 gm/Sodium Chloride 110 ml @ 220 mls/hr EVERY 6 HOURS IV 12/25/17 00:00 01/01/18 00:00 12/26/17 12:33 Chlorhexidine Gluconate (Renée-Hex 2%) 1 applic DAILY@2000 TOPIC 12/26/17 20:00 01/25/18 19:59 Dextrose/ Electrolytes 1,000 ml @ 100 mls/hr Q10H IV 12/25/17 16:00 01/24/18 15:59 12/26/17 12:33 Diphenhydramine HCl (Benadryl) 12.5 mg Q6H PRN IVP Itching/Pruritis 12/25/17 14:45 01/24/18 14:44 Heparin Sodium (Porcine) (Heparin 5000 units/ml) 5,000 units EVERY 8 HOURS SUBQ 12/26/17 14:00 01/25/18 13:59 12/26/17 14:45 Heparin Sodium/ Sodium Chloride (Heparin 2000 units/Ns 1000ml premix) 2,000 unit ONCE PRN INJ PICC LINE INSERTION 12/24/17 10:00 01/23/18 09:59 Magnesium Hydroxide (Mom) 30 ml BIDPRN PRN ORAL Constipation 12/25/17 14:45 01/24/18 14:44 Metronidazole 100 ml @ 100 mls/hr EVERY 6 HOURS IV 12/25/17 00:00 01/01/18 00:00 12/26/17 12:33 Miscellaneous Medication (CHILD LIFE SPECIALIST Rate Change) 1 ea DAILY PRN MISC rate change 12/25/17 15:00 12/27/17 14:59 Miscellaneous Medication (CHILD LIFE SPECIALIST shift volume) 1 ea Q12HR@0700,1900 MISC 12/25/17 19:00 12/27/17 18:59 12/26/17 07:00 Morphine Sulfate 30 ml @ 0 mls/hr Q24H PRN IV For Pain 12/25/17 15:00 12/27/17 14:59 12/26/17 14:44 Morphine Sulfate (Morphine Sulfate) 4 mg Q3H PRN SUBQ Severe Pain (Pain Scale 7-10) 12/25/17 15:00 12/27/17 14:59 12/26/17 08:53 Naloxone HCl (Narcan) 0.1 mg Q1M PRN IVP RR<10/min OR SBP<90 mmHg 12/25/17 15:00 12/27/17 14:59 Ondansetron HCl (Zofran) 4 mg Q6H PRN IVP Nausea & Vomiting 12/25/17 14:45 01/24/18 14:44 Zolpidem Tartrate (Ambien) 5 mg HSPRN PRN ORAL Insomnia 12/24/17 11:15 12/31/17 11:14 Fatimah Steen M.D. Dec 26, 2017 17:03
[2017-12-26 20:00] VITALS: BP 118/77
[2017-12-26] MEDS: Dyna-Hex 2% Top Sol 2oz TOPIC SCH (20:06)
--- NOTE | 2017-12-26 21:02 | Consultation ---
DATE OF CONSULTATION: 12/26/2017 HEMATOLOGY/ONCOLOGY CONSULTATION CONSULTING PHYSICIAN: Caleb Nava M.D. REQUESTING PHYSICIAN: Gareth Hodge M.D. REASON FOR CONSULTATION: Evaluation of incidental adenocarcinoma of the right colon. IDENTIFICATION DATA: Dear Dr. Hodge, The patient is a pleasant 42-year-old male with past medical history, which is significant for ulcerative colitis, referred to Dr. Hodge several months ago, history of severe ulcerative colitis noted, worsening colitis with some dysplastic changes, difficulty to keep fluids, has had symptoms of some failure to thrive. CT scan showed pancolitis, otherwise, the patient has been thin, underwent surgery, and noted to have a right-sided adenocarcinoma, which is incidental. At this time, I reviewed the patient's pathology, results are still pending at the moment. We will need to obtain final results prior to any further recommendations in regards to staging. PAST MEDICAL HISTORY: Ulcerative colitis, sclerosing cholangitis, and pancolitis. PAST SURGICAL HISTORY: Status post colectomy and Lakeshia ileostomy created. ALLERGIES: No known drug allergies. MEDICATIONS: Lomotil and gabapentin. REVIEW OF SYSTEMS: CONSTITUTIONAL: No fevers, chills, or night sweats. SKIN: No rash, bumps, or itching. HEENT: No headache, hearing or vision changes. BREASTS: No lumps, pain, or discharge. PULMONARY: No cough, sputum, or shortness of breath. GASTROINTESTINAL: No nausea, vomiting, or diarrhea. GENITOURINARY: No dysuria, frequency, or urgency. MUSCULOSKELETAL: No joint swelling, muscle pain, or trauma. PHYSICAL EXAMINATION: VITAL SIGNS: Reviewed. GENERAL: No distress. LUNGS: Decreased breath sounds. CARDIOVASCULAR: Regular rate. No S3 or S4. ABDOMEN: Soft, nontender, and nondistended. Ileostomy present. EXTREMITIES: No cyanosis, swelling, or edema reported. LABORATORY AND DIAGNOSTIC DATA: Labs reviewed. Historical labs have been reviewed. We will order for a CEA and CA 19-9. The patient is noted to be anemic. In addition, we will send for ferritin, folic acid, and iron panel. ASSESSMENT AND RECOMMENDATION: 1. Right adenocarcinoma, noted following surgery, at this time hold off on any recommendations and review surgical pathology if it is invasive. Lymph nodes to be reviewed as well. Obtain TNM staging. Imaging has been reviewed. No evidence of metastasis besides some small lesions in the liver. The patient may need outpatient PET scan. 2. Anemia due to underlying chronic disease. Obtain anemia workup, folic acid and TSH. 3. Ulcerative colitis and sclerosing cholangitis. Further monitoring with primary team. 4. Failure to thrive, likely related to recent ulcerative colitis flare, status post surgery. 5. Total abdominal colostomy, status post Lakeshia ileostomy . 6. Leukocytosis, elevated, secondary to surgery. I appreciate the consultation. Caleb Nava M.D. DR: GREGORY JOB#: [id number] CC:
[2017-12-26] MEDS: Zolpidem 5mg tab ORAL PRN (22:04)
--- NOTE | 2017-12-26 23:17 | Operative Note - Dictated ---
DATE OF OPERATION: 12/25/2017 PREOPERATIVE DIAGNOSIS: Ulcerative colitis with dysplasia. POSTOPERATIVE DIAGNOSIS: Ulcerative colitis with adenocarcinoma of the ascending colon. PROCEDURE PERFORMED: Laparoscopic-assisted total abdominal colectomy due to creation of Lakeshia end ileostomy. ATTENDING SURGEON: Gareth Hodge M.D. BRUSH WORKER: Foster Cunningham M.D. ANESTHESIA: General MOTHER REPAIRER. ANESTHESIOLOGIST: Luciano Kim M.D. SPECIMENS: Total abdominal colectomy. DRAINS: None. COMPLICATIONS: None. ESTIMATED BLOOD LOSS: 100 mL. IV FLUIDS: Please see anesthesia records. ANTIBIOTICS: Given one hour prior to cut time. IMPLANTS: None. COUNT: Sponge and needle count correct x2. INDICATIONS FOR PROCEDURE: This is a 42-year-old male, who was initially referred to Dr. Hodge for evaluation of ulcerative colitis with dysplasia. The patient has had a long-standing history of severe ulcerative colitis and has been monitored by his sodium chlorite operator, Dr. Nica Parikh who has been taking great care of the patient for some time now. On most recent colonoscopy, the patient was noted to have severe worsening colitis and biopsies demonstrating dysplasia low-grade at 70 centimeters. Given these findings and the patient's history, the patient was referred to Surgery for evaluation of potential surgical intervention. The patient was initially seen in August 2017 by myself in the office, at which time a long discussion was had about surgical options and indications. The patient was seen a few weeks later after discussing his options and the patient decided that he would like to proceed with surgical intervention given his long-standing colitis history, his symptoms of worsening abdominal pain, inability to tolerate diet, persistent discomfort, significant detriment to his lifestyle with poor quality of life, necessity for multiple bloody bowel movements, and worsening condition throughout the years. In discussing surgical options with the patient, decision was made to proceed with total abdominal colectomy, proctocolectomy, and creation of a BCIR continent ileostomy. Preoperative workup was completed including a CT, colonoscopy, and labs. No significant findings were found other than severe colitis and known history of primary sclerosing cholangitis. The patient was then scheduled for surgery, which was performed on 12/25/2017. Risks, benefits, and alternatives to surgery were discussed in detail with the patient, who consented to surgery. OPERATIVE NOTE: The patient was taken to the operating room and placed on the operating table in supine position with bilateral arms out. All bony prominences were well padded with gel pads. SCDs were placed. Brannon catheter was inserted using sterile technique. Preoperative time-out was taken identifying the patient, procedure, operative staff, and surgical staff. General anesthesia was induced and the patient was intubated. The abdomen was clipped, prepped, and draped in standard surgical fashion. A infraumbilical midline incision was made large enough for a GelPort. Electrocautery and blunt dissection were used to identify the fascia, which was divided and entry into the abdomen was confirmed. A GelPort was placed and through a 12 mm trocar was placed when the abdomen was insufflated 12 to 15 mmHg. A laparoscope was then inserted and the abdomen inspected. No injury or abnormalities were initially noted. The small bowel looked otherwise normal. At this time, two 5 mm trocars were placed through the GelPort as well, which was a large midline single port for advantage of laparoscopic-assisted total abdominal colectomy and then allowing for a smaller incision for the creation of the continent ileostomy. The colon was identified and evaluated. The appendix looked fairly large and abnormal. The ascending omentum, transverse, descending, and sigmoid colon otherwise consistent with chronic ulcerative colitis. The liver looked normal. The stomach looked normal. No peritoneal implants or abnormalities were noted. At this time, a laparoscopic Thunderbeat energy device was used to take down the white line of Toldt on the cecum and ascending colon. Following this, the hepatic flexure was mobilized taking care to identify throughout its fascia and the duodenum without injury. Following this, our attention was turned to the left side descending colon and sigmoid colon, which sigmoid colon was mobilized from its peritoneal reflection as well as the white line of Toldt on the descending colon being mobilized up to the splenic flexure. The splenic flexure was mobilized and the gastrocolic ligament was identified. The gastrocolic ligament was incised and divided laparoscopically until the transverse colon was free. At this time, the ascending hepatic flexure, transverse, splenic flexure, and descending colon were all mobilized from their attachments and easily mobile to the lower portion of abdomen off its mesenteric pedicle. Following this, the descending sigmoid colon was identified and easily mobile as well. At this time, the laparoscopic instruments were removed and the GelPort removed and the colon including the cecum, ascending, transverse, and descending were brought through the midline wound. The appendix was fairly dilated and abnormal and just distal on the ascending colon, there was a palpable mass. In the mesentery of this colon, there was some palpable lymph nodes. At this time, pathology was called who entered the room and biopsy of the mass were performed identifying it to be adenocarcinoma, which is a new finding that was not identified even with preoperative workup. At this time, goals of the case had shifted into a cancer procedure rather than treatment of ulcerative colitis. The base mesentery of the ascending colon and cecum at the ileocolic artery was identified and ligated and divided using #0 silk tie and Thunderbeat energy device. The mesentery of the right colon was divided at the base using a Thunderbeat energy device. This was taken circumferentially in a clockwise fashion towards the ascending colon, descending colon, and sigmoid colon. The middle colic and left colic arteries and sigmoid arteries were divided and ligated including the inferior mesenteric artery using a #0 silk tie. Following this, the sigmoid colon was dissected free from its peritoneal attachments down to the pelvic brim taken down low into the sacral promontory to the coccyx using the energy device. At this time, decision was made to begin our division of the bowel and the terminal ileum was divided at a pre-chosen site after mesentery was made followed by division of the terminal ileum using a linear stapler. Following this, a curved stapler was then used to divide the bowel at the distal aspect of the sacral promontory near the coccyx in the rectum. At this time, the specimen was removed and sent to pathology for further evaluation. The abdomen was then inspected and irrigated and cleansed. A decision was made not to perform APR and the continent ileostomy or pouch given that the patient has been recently diagnosed a new found adenocarcinoma. Given the size and invasion of the tumor, he will likely be stage II or higher requiring chemotherapy and would be in the patient's best interest to proceed with curative therapy for cancer followed by proctectomy, APR, and creation of a continent ileostomy at a later date. At this time, liver inspected, no masses or abnormalities were noted. The abdomen was reinspected and no other abnormalities noted. The small bowel was run from the stomach down to the remainder of the ileum without any abnormalities. Decision was made to proceed with a conventional Lakeshia ileostomy, which was placed in the right lower quadrant. A site was marked and a small circular skin incision was made and skin removed. A cruciate incision was made into the fascia and entry into the abdomen was confirmed followed by bringing out the end loop of the ileum. The ileostomy was then matured in a Lakeshia fashion using 3-0 Vicryl sutures. Following this, we turned our attention to the midline wound, which fascia was closed using a #0 looped PDS suture followed by closure of the skin using surgical skin anna. The patient was extubated, taken to postanesthesia care unit in stable condition. Condition and findings were discussed with the patient and family in detail postoperatively. Gareth Hodge M.D. DR: BRITTON JOB#: [id number] CC: LEONEL
[2017-12-27] VITALS: BP 111/74
[2017-12-27] MEDS: Ampicillin/Sulbactam Sod 3 GM in NS 110 ML IV SCH ×2 (00:01→06:03)
[2017-12-27 04:00] VITALS: BP 119/80
[2017-12-27] MEDS: Heparin 5000 units/ml inj SUBQ SCH ×3 (06:05→20:37)
[2017-12-27 06:31] LABS: BASOPHILS % (AUTO) 0.8 % (0.0-2.0); EOSINOPHILS % (AUTO) 0.6 % (0.0-3.0); HEMATOCRIT 29.8 % (42.0-52.0); HEMOGLOBIN 9.3 G/DL (14.2-18.0); LYMPHOCYTES % (AUTO) 22.9 % (20.0-45.0); MEAN CORPUSCULAR VOLUME 84 FL (80-99); MONOCYTES % (AUTO) 10.5 % (1.0-10.0); NEUTROPHILS % (AUTO) 65.2 % (45.0-75.0); PLATELET COUNT 291 K/UL (150-450); RED BLOOD COUNT 3.57 M/UL (4.70-6.10); RED CELL DISTRIBUTION WIDTH 12.8 % (11.6-14.8); WHITE BLOOD COUNT 9.5 K/UL (4.8-10.8)
[2017-12-27 06:43] LABS: ALANINE AMINOTRANSFERASE 38 U/L (12-78); ALBUMIN 2.3 G/DL (3.4-5.0); ALBUMIN/GLOBULIN RATIO 0.5 (1.0-2.7); ALKALINE PHOSPHATASE 351 U/L (46-116); ANION GAP 5 mmol/L (5-15); ASPARTATE AMINO TRANSFERASE 23 U/L (15-37); BILIRUBIN,TOTAL 0.2 MG/DL (0.2-1.0); BLOOD UREA NITROGEN 4 mg/dL (7-18); CARBON DIOXIDE 31 MMOL/L (21-32); CHLORIDE 101 MMOL/L (98-107); CREATININE 0.6 MG/DL (0.55-1.30); POTASSIUM 3.3 MMOL/L (3.5-5.1); SODIUM 136 MMOL/L (136-145)
[2017-12-27] MEDS: PCA Morphine 1mg/ml 30 ML IV PRN ×3 (06:52→21:18)
[2017-12-27] MEDS: PCA shift volume MISC SCH ×2 (07:00→19:19)
[2017-12-27 08:00] VITALS: BP 115/81
[2017-12-27] MEDS ORDERED: LR 1000ml ONE (09:00)
[2017-12-27] MEDS ORDERED: NS Irrig 1000ml ONE (09:00)
[2017-12-27] MEDS ORDERED: Sterile Water Irrig 1000ml IRRIG ONE (09:00)
[2017-12-27] MEDS: D5 1/2NS w/KCl 20mEq 1,000 ML IV SCH ×2 (09:04→17:33)
--- NOTE | 2017-12-27 11:03 | General Progress Note ---
Progress Note Progress Note doing well. mild nausea. tolerating clears. comfortable. pain improved. labs okay. exam benign. wound c/d/i. ostomy pink. some gas in bag -d/c dobbins -cont current care -ambulate and out of bed -midline wound open to air -change ostomy bag please. Gareth Hodge Dec 27, 2017 11:03
--- NOTE | 2017-12-27 11:17 | Infectious Diseases Prog Note ---
Assessment/Plan Assessment/Plan Abx: Unasyn 12/25- Flagyl 12/25- Assessment: Long standing Severe UC Colorectal CA -intraop biopsy +adenocarcinoma (incidental finding upon surgical exploration) -s/p total abdominal colectomy and brook ileostomy creation 12/25 -OR findings:The appendix was fairly dilated and abnormal and just distal on the ascending colon, there was a palpable mass. In the mesentery of this colon , there was some palpable lymph nodes. At this time, pathology was called who entered the room and biopsy of the mass were performed identifying it to be adenocarcinoma Leukocytosis, likely reactive/post-op- resolved FTT 2ry to above Afebrile sclerosing cholangitis Plan: -D/c perio-op Unasyn and Flagyl #4 and monitor off abx -Monitor CBC/BMP, temperatures -wound care -aspiration precautions -Heme onc f/u Thank you for this consultation. Will continue to follow along with you. Discussed with RN Subjective Allergies: Coded Allergies: No Known Allergies (Unverified , 08/29/17) Subjective afebrile leukocytosis resolved on clears liquid Objective Vital Signs Last 24 Hour Vital Signs Date Time Temp Pulse Resp B/P (MAP) Pulse Ox O2 Delivery O2 Flow Rate FiO2 12/27/17 08:00 18 12/27/17 08:00 98.3 89 16 115/81 99 98.3 12/27/17 04:00 98.4 95 18 119/80 95 Room Air 98.4 12/27/17 04:00 18 12/27/17 00:00 18 12/27/17 00:00 99.1 100 18 111/74 95 Nasal Cannula 3.0 99.1 12/26/17 21:49 18 12/26/17 20:00 98.5 85 18 118/77 99 Nasal Cannula 3.0 98.5 12/26/17 20:00 18 12/26/17 16:00 97.8 91 20 118/75 97 Room Air 97.8 12/26/17 16:00 20 12/26/17 14:40 20 12/26/17 12:00 20 12/26/17 12:00 98.6 81 20 108/69 96 Room Air 98.6 Height (Feet): 5 Height (Inches): 7.00 Weight (Pounds): 120 Objective General Appearance: WD/WN, no apparent distress, alert Lines, tubes and drains: PICC HEENT: normocephalic, atraumatic, anicteric, mucous membranes moist, PERRL Neck: normal inspection Respiratory/Chest: lungs clear, normal breath sounds, no respiratory distress, no accessory muscle use Cardiovascular/Chest: normal peripheral pulses, normal rate Abdomen: normal bowel sounds, non tender, soft, no organomegaly, no mass; surgical dressings in place, ostomy in palce Extremities: normal range of motion, non-tender, normal inspection, no calf tenderness, normal capillary refill, non-pitting Skin Exam: normal pigmentation, warm/dry Microbiology Date/Time Source Procedure Growth Status 12/24/17 11:25 Nasal Nares MRSA Culture - Final NO METHICILLIN RESISTANT STAPH AUREUS... Complete Laboratory Tests Test 12/27/17 06:15 White Blood Count 9.5 K/UL (4.8-10.8) Red Blood Count 3.57 M/UL (4.70-6.10) L Hemoglobin 9.3 G/DL (14.2-18.0) L Hematocrit 29.8 % (42.0-52.0) L Mean Corpuscular Volume 84 FL (80-99) Mean Corpuscular Hemoglobin 26.1 PG (27.0-31.0) L Mean Corpuscular Hemoglobin Concent 31.2 G/DL (32.0-36.0) L Red Cell Distribution Width 12.8 % (11.6-14.8) Platelet Count 291 K/UL (150-450) Mean Platelet Volume 7.1 FL (6.5-10.1) Neutrophils (%) (Auto) 65.2 % (45.0-75.0) Lymphocytes (%) (Auto) 22.9 % (20.0-45.0) Monocytes (%) (Auto) 10.5 % (1.0-10.0) H Eosinophils (%) (Auto) 0.6 % (0.0-3.0) Basophils (%) (Auto) 0.8 % (0.0-2.0) Sodium Level 136 MMOL/L (136-145) Potassium Level 3.3 MMOL/L (3.5-5.1) L Chloride Level 101 MMOL/L (98-107) Carbon Dioxide Level 31 MMOL/L (21-32) Anion Gap 5 mmol/L (5-15) Blood Urea Nitrogen 4 mg/dL (7-18) L Creatinine 0.6 MG/DL (0.55-1.30) Estimat Glomerular Filtration Rate > 60 mL/min (>60) Glucose Level 121 MG/DL (74-106) H Calcium Level 8.0 MG/DL (8.5-10.1) L Total Bilirubin 0.2 MG/DL (0.2-1.0) Aspartate Amino Transf (AST/SGOT) 23 U/L (15-37) Alanine Aminotransferase (ALT/SGPT) 38 U/L (12-78) Alkaline Phosphatase 351 U/L (46-116) H Total Protein 6.5 G/DL (6.4-8.2) Albumin 2.3 G/DL (3.4-5.0) L Globulin 4.2 g/dL Albumin/Globulin Ratio 0.5 (1.0-2.7) L Current Medications Medications (Trade) Dose Ordered Sig/Felipe Route PRN Reason Start Time Stop Time Status Last Admin Dose Admin Acetaminophen (Tylenol) 650 mg Q6H PRN ORAL MILD BRKTHRU PAIN / T> 100.5 12/25/17 14:45 01/24/18 14:44 12/26/17 22:05 Al Hydroxide/Mg Hydroxide (Mylanta) 15 ml Q6H PRN ORAL DYSPEPSIA 12/25/17 14:45 01/24/18 14:44 Ampicillin Sodium/ Sulbactam Sodium 3 gm/Sodium Chloride 110 ml @ 220 mls/hr EVERY 6 HOURS IV 12/25/17 00:00 01/01/18 00:00 12/27/17 06:03 Chlorhexidine Gluconate (Renée-Hex 2%) 1 applic DAILY@2000 TOPIC 12/26/17 20:00 01/25/18 19:59 12/26/17 20:06 Dextrose/ Electrolytes 1,000 ml @ 100 mls/hr Q10H IV 12/25/17 16:00 01/24/18 15:59 12/27/17 09:04 Diphenhydramine HCl (Benadryl) 12.5 mg Q6H PRN IVP Itching/Pruritis 12/25/17 14:45 01/24/18 14:44 Heparin Sodium (Porcine) (Heparin 5000 units/ml) 5,000 units EVERY 8 HOURS SUBQ 12/26/17 14:00 01/25/18 13:59 12/27/17 06:05 Heparin Sodium/ Sodium Chloride (Heparin 2000 units/Ns 1000ml premix) 2,000 unit ONCE PRN INJ PICC LINE INSERTION 12/24/17 10:00 01/23/18 09:59 Magnesium Hydroxide (Mom) 30 ml BIDPRN PRN ORAL Constipation 12/25/17 14:45 01/24/18 14:44 Metronidazole 100 ml @ 100 mls/hr EVERY 6 HOURS IV 12/25/17 00:00 01/01/18 00:00 12/27/17 06:03 Miscellaneous Medication (CATTLE FEEDER Rate Change) 1 ea DAILY PRN MISC rate change 12/25/17 15:00 12/27/17 14:59 Miscellaneous Medication (CATTLE FEEDER shift volume) 1 ea Q12HR@0700,1900 MISC 12/25/17 19:00 12/27/17 18:59 12/27/17 07:00 Morphine Sulfate 30 ml @ 0 mls/hr Q24H PRN IV For Pain 12/25/17 15:00 12/27/17 14:59 12/27/17 06:52 Morphine Sulfate (Morphine Sulfate) 4 mg Q3H PRN SUBQ Severe Pain (Pain Scale 7-10) 12/25/17 15:00 12/27/17 14:59 12/26/17 20:05 Naloxone HCl (Narcan) 0.1 mg Q1M PRN IVP RR<10/min OR SBP<90 mmHg 12/25/17 15:00 12/27/17 14:59 Ondansetron HCl (Zofran) 4 mg Q6H PRN IVP Nausea & Vomiting 12/25/17 14:45 01/24/18 14:44 12/27/17 09:04 Zolpidem Tartrate (Ambien) 5 mg HSPRN PRN ORAL Insomnia 12/24/17 11:15 12/31/17 11:14 12/26/17 22:04 Fatimah Steen M.D. Dec 27, 2017 11:17
[2017-12-27 12:00] VITALS: BP 105/67
[2017-12-27] MEDS: Morphine Sulfate 4mg/ml Inj SUBQ PRN (14:21)
[2017-12-27 16:00] VITALS: BP 120/74
[2017-12-27] MEDS ORDERED: Naloxone 0.4mg/ml Inj IVP PRN (17:13)
[2017-12-27] MEDS ORDERED: Rate Change PCA 1 Each MISC PRN (17:13)
[2017-12-27] MEDS ORDERED: Morphine Sulfate 4mg/ml Inj SUBQ PRN (17:30)
[2017-12-27 20:00] VITALS: BP 120/83
[2017-12-27] MEDS: Dyna-Hex 2% Top Sol 2oz TOPIC SCH (20:35)
[2017-12-27] MEDS: Zolpidem 5mg tab ORAL PRN (23:58)
[2017-12-28] VITALS: BP 128/81
[2017-12-28] MEDS: D5 1/2NS w/KCl 20mEq 1,000 ML IV SCH ×3 (03:50→19:32)
[2017-12-28] MEDS: PCA Morphine 1mg/ml 30 ML IV PRN ×2 (03:51→17:32)
[2017-12-28 04:00] VITALS: BP 116/75
[2017-12-28] MEDS: Heparin 5000 units/ml inj SUBQ SCH ×3 (05:39→21:32)
[2017-12-28] MEDS: PCA shift volume MISC SCH ×2 (07:00→19:23)
[2017-12-28 07:29] LABS: BASOPHILS % (AUTO) 0.9 % (0.0-2.0); EOSINOPHILS % (AUTO) 1.8 % (0.0-3.0); HEMOGLOBIN 9.5 G/DL (14.2-18.0); LYMPHOCYTES % (AUTO) 22.7 % (20.0-45.0); MEAN CORPUSCULAR VOLUME 83 FL (80-99); MONOCYTES % (AUTO) 8.2 % (1.0-10.0); NEUTROPHILS % (AUTO) 66.3 % (45.0-75.0); PLATELET COUNT 256 K/UL (150-450); RED CELL DISTRIBUTION WIDTH 12.6 % (11.6-14.8); WHITE BLOOD COUNT 8.7 K/UL (4.8-10.8)
[2017-12-28 07:56] LABS: ALANINE AMINOTRANSFERASE 33 U/L (12-78); ALBUMIN 2.3 G/DL (3.4-5.0); ALBUMIN/GLOBULIN RATIO 0.5 (1.0-2.7); ALKALINE PHOSPHATASE 406 U/L (46-116); ANION GAP 4 mmol/L (5-15); ASPARTATE AMINO TRANSFERASE 23 U/L (15-37); BILIRUBIN,TOTAL 0.3 MG/DL (0.2-1.0); BLOOD UREA NITROGEN 5 mg/dL (7-18); CALCIUM 8.2 MG/DL (8.5-10.1); CARBON DIOXIDE 30 MMOL/L (21-32); CHLORIDE 103 MMOL/L (98-107); CREATININE 0.7 MG/DL (0.55-1.30); POTASSIUM 3.2 MMOL/L (3.5-5.1); SODIUM 137 MMOL/L (136-145)
[2017-12-28 08:00] VITALS: BP 120/73
[2017-12-28 12:00] VITALS: BP 115/78
[2017-12-28 16:00] VITALS: BP 123/83
--- NOTE | 2017-12-28 17:57 | General Progress Note ---
Progress Note Progress Note no acute events. doing well. comfortable. no n/v/f/c. labs okay. tolerating clears ostomy functional and viable. liquid stool and gas in bag. ambulatory. -advance to full liquids -decrease IV fluids rate -add ibuprofen -K replace -AM labs Gareth Hodge Dec 28, 2017 17:57
[2017-12-28 20:00] VITALS: BP 126/89
--- NOTE | 2017-12-28 20:51 | General Progress Note ---
Assessment/Plan Assessment/Plan ASSESSMENT AND RECOMMENDATION: 1. Right adenocarcinoma, noted following surgery, at this time hold off on any recommendations and review surgical pathology if it is invasive. Lymph nodes to be reviewed as well. Obtain TNM staging. Imaging has been reviewed. No evidence of metastasis besides some small lesions in the liver. The patient may need outpatient PET scan. --> in addition review pathology here inhouse --> have discussed with family already, will need to review path first 2. Anemia due to underlying chronic disease. Obtain anemia workup, folic acid and TSH --> hgb goal is >7 3. Ulcerative colitis and sclerosing cholangitis. Further monitoring with primary team. 4. Failure to thrive, likely related to recent ulcerative colitis flare, status post surgery. 5. Total abdominal colostomy, status post [place]hia ileostomy 6. Leukocytosis, elevated, secondary to surgery. Subjective Date patient seen: Dec 27, 2017 Constitutional: Denies: no symptoms, chills, diaphoresis, fever, malaise, weakness, other HEENT: Denies: no symptoms, eye pain, blurred vision, tearing, double vision, ear pain, ear discharge, nose pain, nose congestion, throat pain, throat swelling, mouth pain, mouth swelling, other Cardiovascular: Denies: no symptoms, chest pain, edema, irregular heart rate, lightheadedness, palpitations, syncope, other Respiratory: Denies: no symptoms, cough, orthopnea, shortness of breath, SOB with excertion, SOB at rest, sputum, stridor, wheezing, other Gastrointestinal/Abdominal: Denies: no symptoms, abdomen distended, abdominal pain, black stools, tarry stools, blood in stool, constipated, diarrhea, difficulty swallowing, nausea, poor appetite, poor fluid intake, rectal bleeding , vomiting, other Genitourinary: Denies: no symptoms, burning, discharge, frequency, flank pain, hematuria, incontinence, pain, urgency, other Neurologic/Psychiatric: Denies: no symptoms, anxiety, depressed, emotional problems, headache, numbness, paresthesia, pre-existing deficit, seizure, tingling, tremors, weakness, other Endocrine: Denies: no symptoms, excessive sweating, flushing, intolerance to cold, intolerance to heat, increased hunger, increased thirst, increased urine, unexplained weight gain, unexplained weight loss, other Hematologic/Lymphatic: Denies: no symptoms, anemia, easy bleeding, easy bruising, other Allergies: Coded Allergies: No Known Allergies (Unverified , 08/29/17) Subjective no fevers or chills noted Objective Last 24 Hour Vital Signs Date Time Temp Pulse Resp B/P (MAP) Pulse Ox O2 Delivery O2 Flow Rate FiO2 12/28/17 17:30 18 12/28/17 16:00 99.1 98 18 123/83 96 99.1 12/28/17 16:00 18 12/28/17 12:00 98.6 100 20 115/78 97 98.6 12/28/17 12:00 18 12/28/17 08:00 18 12/28/17 08:00 98.5 91 18 120/73 97 Room Air 98.5 12/28/17 04:00 98.8 92 17 116/75 97 Room Air 98.8 12/28/17 04:00 18 12/28/17 00:00 99.3 95 18 128/81 96 Room Air 99.3 12/28/17 00:00 18 12/27/17 21:18 98.7 Intake and Output 12/27/17 12/28/17 19:00 07:00 Intake Total 700 ml 1000 ml Output Total 2430 ml 950 ml Balance -1730 ml 50 ml Intake Oral 600 ml 300 ml IV Total 100 ml 700 ml Output Urine Total 2400 ml 800 ml Other 30 ml 150 ml Laboratory Tests 12/28/17 05:00: White Blood Count 8.7, Red Blood Count 3.50L, Hemoglobin 9.5L, Hematocrit 29.0L , Mean Corpuscular Volume 83, Mean Corpuscular Hemoglobin 27.3, Mean Corpuscular Hemoglobin Concent 32.8, Red Cell Distribution Width 12.6, Platelet Count 256, Mean Platelet Volume 6.9, Neutrophils (%) (Auto) 66.3, Lymphocytes (% ) (Auto) 22.7, Monocytes (%) (Auto) 8.2, Eosinophils (%) (Auto) 1.8, Basophils ( %) (Auto) 0.9, Sodium Level 137, Potassium Level 3.2L, Chloride Level 103, Carbon Dioxide Level 30, Anion Gap 4L, Blood Urea Nitrogen 5L, Creatinine 0.7, Estimat Glomerular Filtration Rate > 60, Glucose Level 104, Calcium Level 8.2L, Total Bilirubin 0.3, Aspartate Amino Transf (AST/SGOT) 23, Alanine Aminotransferase (ALT/SGPT) 33, Alkaline Phosphatase 406H, Total Protein 6.6, Albumin 2.3L, Globulin 4.3, Albumin/Globulin Ratio 0.5L Height (Feet): 5 Height (Inches): 7.00 Weight (Pounds): 120 General Appearance: no apparent distress EENT: TMs normal Neck: normal alignment Cardiovascular: normal rate Extremities: non-tender Edema: 1+ Leg (L), 1+ Leg (R) Neurologic: alert Skin: warm/dry Caleb Nava MD Dec 28, 2017 20:51
[2017-12-28] MEDS: Dyna-Hex 2% Top Sol 2oz TOPIC SCH (21:29)
[2017-12-29] VITALS: BP 125/84
[2017-12-29] MEDS: Zolpidem 5mg tab ORAL PRN (00:11)
[2017-12-29] MEDS: D5 1/2NS w/KCl 20mEq 1,000 ML IV SCH (00:11)
[2017-12-29] MEDS: PCA Morphine 1mg/ml 30 ML IV PRN (00:12)
[2017-12-29 04:00] VITALS: BP 112/77
[2017-12-29] MEDS: Heparin 5000 units/ml inj SUBQ SCH ×3 (05:06→22:17)
[2017-12-29] MEDS: PCA shift volume MISC SCH (07:14)
[2017-12-29 07:15] LABS: ANION GAP 6 mmol/L (5-15); BLOOD UREA NITROGEN 4 mg/dL (7-18); CALCIUM 8.3 MG/DL (8.5-10.1); CARBON DIOXIDE 30 MMOL/L (21-32); CHLORIDE 104 MMOL/L (98-107); CREATININE 0.6 MG/DL (0.55-1.30); POTASSIUM 3.6 MMOL/L (3.5-5.1); SODIUM 140 MMOL/L (136-145)
--- NOTE | 2017-12-29 07:56 | General Progress Note ---
Assessment/Plan Assessment/Plan ASSESSMENT AND RECS: 1. Right adenocarcinoma, noted following surgery, at this time hold off on any recommendations and review surgical pathology if it is invasive. Lymph nodes to be reviewed as well. Obtain TNM staging. Imaging has been reviewed. No evidence of metastasis besides some small lesions in the liver. The patient may need outpatient PET scan. --> in addition review pathology here in-house --> have discussed with family already, will need to review path first 2. Anemia due to underlying chronic disease. Obtain anemia workup, folic acid and TSH --> anemia workup has been reviewed --> hgb goal is >7 3. Ulcerative colitis and sclerosing cholangitis. Further monitoring with primary team. --> fluids on prn basis 4. Failure to thrive, likely related to recent ulcerative colitis flare, status post surgery. 5. Total abdominal colostomy, status post [place] ileostomy 6. Leukocytosis, elevated, secondary to surgery. Subjective Date patient seen: Dec 28, 2017 Constitutional: Reports: no symptoms HEENT: Reports: no symptoms Cardiovascular: Reports: no symptoms Respiratory: Reports: no symptoms Gastrointestinal/Abdominal: Reports: no symptoms Genitourinary: Reports: no symptoms Neurologic/Psychiatric: Reports: no symptoms Endocrine: Reports: no symptoms Hematologic/Lymphatic: Reports: anemia Allergies: Coded Allergies: No Known Allergies (Unverified , 08/29/17) Subjective no fevers or chills noted, no bleeding Objective Last 24 Hour Vital Signs Date Time Temp Pulse Resp B/P (MAP) Pulse Ox O2 Delivery O2 Flow Rate FiO2 12/29/17 04:00 98.1 94 17 112/77 96 Room Air 98.1 12/29/17 04:00 18 12/29/17 00:00 18 12/29/17 00:00 98.8 102 18 125/84 98 Room Air 98.8 12/28/17 21:30 99.1 12/28/17 20:00 18 12/28/17 20:00 99.7 108 17 126/89 97 Room Air 99.7 12/28/17 17:30 18 12/28/17 16:00 99.1 98 18 123/83 96 99.1 12/28/17 16:00 18 12/28/17 12:00 98.6 100 20 115/78 97 98.6 12/28/17 12:00 18 12/28/17 08:00 18 12/28/17 08:00 98.5 91 18 120/73 97 Room Air 98.5 Intake and Output 12/28/17 12/29/17 19:00 07:00 Intake Total 400 ml 650 ml Output Total 950 ml Balance 400 ml -300 ml Intake Oral 400 ml 500 ml IV Total 150 ml Output Urine Total 800 ml Other 150 ml # Voids 4 3 Laboratory Tests 12/29/17 05:00: Sodium Level 140, Potassium Level 3.6, Chloride Level 104, Carbon Dioxide Level 30, Anion Gap 6, Blood Urea Nitrogen 4L, Creatinine 0.6, Estimat Glomerular Filtration Rate > 60, Glucose Level 98, Calcium Level 8.3L Height (Feet): 5 Height (Inches): 7.00 Weight (Pounds): 120 General Appearance: alert EENT: TMs normal Neck: supple Cardiovascular: regular rhythm Respiratory/Chest: lungs clear Abdomen: non tender Extremities: non-tender Edema: no edema noted Leg (L), no edema noted Leg (R) Edema: mild edema Neurologic: alert Skin: warm/dry Caleb Nava MD Dec 29, 2017 07:56
[2017-12-29 08:40] VITALS: BP 133/68
[2017-12-29 12:00] VITALS: BP 130/64
[2017-12-29] MEDS: Norco 5mg/325mg tab ORAL PRN ×2 (13:22→22:51)
--- NOTE | 2017-12-29 15:05 | Infectious Diseases Prog Note ---
Assessment/Plan Assessment/Plan Assessment: Long standing Severe UC Colorectal CA -intraop biopsy +adenocarcinoma (incidental finding upon surgical exploration) -s/p total abdominal colectomy and brook ileostomy creation 12/25 -OR findings:The appendix was fairly dilated and abnormal and just distal on the ascending colon, there was a palpable mass. In the mesentery of this colon , there was some palpable lymph nodes. At this time, pathology was called who entered the room and biopsy of the mass were performed identifying it to be adenocarcinoma Leukocytosis, likely reactive/post-op- resolved FTT 2ry to above Afebrile sclerosing cholangitis Plan: -Continue to monitor off abx -12/27 SP Unasyn and Flagyl #4 (stella-op) -Monitor CBC/BMP, temperatures -wound care -aspiration precautions Thank you for this consultation. Will continue to follow along with you. Discussed with RN Subjective Allergies: Coded Allergies: No Known Allergies (Unverified , 08/29/17) Subjective afebrile No leukocytosis off abx Objective Vital Signs Last 24 Hour Vital Signs Date Time Temp Pulse Resp B/P (MAP) Pulse Ox O2 Delivery O2 Flow Rate FiO2 12/29/17 14:21 97.5 12/29/17 13:22 97.5 12/29/17 12:00 17 12/29/17 08:40 97.5 87 17 133/68 Room Air 97.5 12/29/17 08:00 17 12/29/17 04:00 98.1 94 17 112/77 96 Room Air 98.1 12/29/17 04:00 18 12/29/17 00:00 18 12/29/17 00:00 98.8 102 18 125/84 98 Room Air 98.8 12/28/17 21:30 99.1 12/28/17 20:00 18 12/28/17 20:00 99.7 108 17 126/89 97 Room Air 99.7 12/28/17 17:30 18 12/28/17 16:00 99.1 98 18 123/83 96 99.1 12/28/17 16:00 18 Height (Feet): 5 Height (Inches): 7.00 Weight (Pounds): 120 Objective General Appearance: WD/WN, no apparent distress, alert Lines, tubes and drains: PICC HEENT: normocephalic, atraumatic, anicteric, mucous membranes moist, PERRL Neck: normal inspection Respiratory/Chest: lungs clear, normal breath sounds, no respiratory distress, no accessory muscle use Cardiovascular/Chest: normal peripheral pulses, normal rate Abdomen: normal bowel sounds, non tender, soft, no organomegaly, no mass; surgical dressings in place, ostomy in palce Extremities: normal range of motion, non-tender, normal inspection, no calf tenderness, normal capillary refill, non-pitting Skin Exam: normal pigmentation, warm/dry Laboratory Tests Test 12/29/17 05:00 Sodium Level 140 MMOL/L (136-145) Potassium Level 3.6 MMOL/L (3.5-5.1) Chloride Level 104 MMOL/L (98-107) Carbon Dioxide Level 30 MMOL/L (21-32) Anion Gap 6 mmol/L (5-15) Blood Urea Nitrogen 4 mg/dL (7-18) L Creatinine 0.6 MG/DL (0.55-1.30) Estimat Glomerular Filtration Rate > 60 mL/min (>60) Glucose Level 98 MG/DL (74-106) Calcium Level 8.3 MG/DL (8.5-10.1) L Current Medications Medications (Trade) Dose Ordered Sig/Felipe Route PRN Reason Start Time Stop Time Status Last Admin Dose Admin Acetaminophen (Tylenol) 650 mg Q6H PRN ORAL MILD BRKTHRU PAIN / T> 100.5 12/25/17 14:45 01/24/18 14:44 12/28/17 21:30 Acetaminophen/ Hydrocodone Bitart ([place] 5/325) 2 tab Q4H PRN ORAL Moderate Pain (Pain Scale 4-6) 12/29/17 13:15 01/05/18 13:14 12/29/17 13:22 Al Hydroxide/Mg Hydroxide (Mylanta) 15 ml Q6H PRN ORAL DYSPEPSIA 12/25/17 14:45 01/24/18 14:44 Chlorhexidine Gluconate (Renée-Hex 2%) 1 applic DAILY@1999 TOPIC 12/26/17 20:00 01/25/18 19:59 12/28/17 21:29 Diphenhydramine HCl (Benadryl) 12.5 mg Q6H PRN IVP Itching/Pruritis 12/25/17 14:45 01/24/18 14:44 Docusate Sodium (Colace) 100 mg TWICE A DAY ORAL 12/29/17 18:00 01/28/18 17:59 Heparin Sodium (Porcine) (Heparin 5000 units/ml) 5,000 units EVERY 8 HOURS SUBQ 12/26/17 14:00 01/25/18 13:59 12/29/17 13:27 Heparin Sodium/ Sodium Chloride (Heparin 2000 units/Ns 1000ml premix) 2,000 unit ONCE PRN INJ PICC LINE INSERTION 12/24/17 10:00 01/23/18 09:59 Ibuprofen (Motrin) 600 mg Q6H PRN ORAL Breakthrough Pain 12/28/17 18:00 01/27/18 17:59 Magnesium Hydroxide (Mom) 30 ml BIDPRN PRN ORAL Constipation 12/25/17 14:45 01/24/18 14:44 Ondansetron HCl (Zofran) 4 mg Q6H PRN IVP Nausea & Vomiting 12/25/17 14:45 01/24/18 14:44 12/28/17 15:42 Zolpidem Tartrate (Ambien) 5 mg HSPRN PRN ORAL Insomnia 12/24/17 11:15 12/31/17 11:14 12/29/17 00:11 Fatimah Steen M.D. Dec 29, 2017 15:05
--- NOTE | 2017-12-29 15:26 | General Progress Note ---
Progress Note Progress Note Surgery: no acute events. comfortable. pain improving. ostomy functional. no n/v/f/ c. labs okay -full liquids -d/c fluid -transition to oral meds plan for d/c friday. Gareth Hodge Dec 29, 2017 15:25
--- NOTE | 2017-12-29 15:46 | General Progress Note ---
Assessment/Plan Status: doing well Assessment/Plan ASSESSMENT AND RECS: 1. Right adenocarcinoma, noted following surgery, at this time hold off on any recommendations and review surgical pathology if it is invasive. Lymph nodes to be reviewed as well. Obtain TNM staging. Imaging has been reviewed. No evidence of metastasis besides some small lesions in the liver. The patient may need outpatient PET scan. --> in addition review pathology here in-house --> have discussed with family already, will need to review path first 2. Anemia due to underlying chronic disease. Obtain anemia workup, folic acid and TSH --> anemia workup has been reviewed --> hgb goal is >7 3. Ulcerative colitis and sclerosing cholangitis. Further monitoring with primary team. --> fluids on prn basis 4. Failure to thrive, likely related to recent ulcerative colitis flare, status post surgery. 5. Total abdominal colostomy, status post [place] ileostomy 6. Leukocytosis, elevated, improving Subjective Date patient seen: Dec 29, 2017 Allergies: Coded Allergies: No Known Allergies (Unverified , 08/29/17) All Systems: reviewed and negative except above Subjective Pt seen in bed resting. No signs of medical distress. D/C planned for Friday. Objective Last 24 Hour Vital Signs Date Time Temp Pulse Resp B/P (MAP) Pulse Ox O2 Delivery O2 Flow Rate FiO2 12/29/17 14:21 97.5 12/29/17 13:22 97.5 12/29/17 12:00 17 12/29/17 08:40 97.5 87 17 133/68 Room Air 97.5 12/29/17 08:00 17 12/29/17 04:00 98.1 94 17 112/77 96 Room Air 98.1 12/29/17 04:00 18 12/29/17 00:00 18 12/29/17 00:00 98.8 102 18 125/84 98 Room Air 98.8 12/28/17 21:30 99.1 12/28/17 20:00 18 12/28/17 20:00 99.7 108 17 126/89 97 Room Air 99.7 12/28/17 17:30 18 12/28/17 16:00 99.1 98 18 123/83 96 99.1 12/28/17 16:00 18 Intake and Output 12/28/17 12/29/17 19:00 07:00 Intake Total 400 ml 725 ml Output Total 950 ml Balance 400 ml -225 ml Intake Oral 400 ml 500 ml IV Total 225 ml Output Urine Total 800 ml Other 150 ml # Voids 4 3 Laboratory Tests 12/29/17 05:00: Sodium Level 140, Potassium Level 3.6, Chloride Level 104, Carbon Dioxide Level 30, Anion Gap 6, Blood Urea Nitrogen 4L, Creatinine 0.6, Estimat Glomerular Filtration Rate > 60, Glucose Level 98, Calcium Level 8.3L Height (Feet): 5 Height (Inches): 7.00 Weight (Pounds): 120 General Appearance: alert EENT: PERRL/EOMI Neck: supple Cardiovascular: normal rate Respiratory/Chest: normal breath sounds Abdomen: non tender Caleb Nava MD Dec 29, 2017 15:46
[2017-12-29 16:00] VITALS: BP 131/70
[2017-12-29] MEDS: Docusate 100mg cap ORAL SCH (17:42)
[2017-12-29 20:00] VITALS: BP 106/70
[2017-12-29] MEDS: Dyna-Hex 2% Top Sol 2oz TOPIC SCH (20:30)
[2017-12-30] VITALS (7 sets, daily range): BP systolic 109–124; BP diastolic 64–80
[2017-12-30] MEDS: Heparin 5000 units/ml inj SUBQ SCH ×3 (05:41→21:51)
[2017-12-30] MEDS: Docusate 100mg cap ORAL SCH ×2 (08:20→17:36)
--- NOTE | 2017-12-30 10:49 | General Progress Note ---
Assessment/Plan Status: stable Assessment/Plan ASSESSMENT AND RECS: 1. Right adenocarcinoma, noted following surgery, at this time hold off on any recommendations and review surgical pathology if it is invasive. Lymph nodes to be reviewed as well. Obtain TNM staging. Imaging has been reviewed. No evidence of metastasis besides some small lesions in the liver. The patient may need outpatient PET scan. --> in addition review pathology here in-house --> have discussed with family already, will need to review path first 2. Anemia due to underlying chronic disease. Obtain anemia workup, folic acid and TSH --> anemia workup has been reviewed --> hgb goal is >7 3. Ulcerative colitis and sclerosing cholangitis. Further monitoring with primary team. --> fluids on prn basis 4. Failure to thrive, likely related to recent ulcerative colitis flare, status post surgery. 5. Total abdominal colostomy, status post [place] ileostomy 6. Leukocytosis, elevated, improving Subjective Date patient seen: Dec 30, 2017 Allergies: Coded Allergies: No Known Allergies (Unverified , 08/29/17) All Systems: reviewed and negative except above Subjective Pt seen in bed resting. No signs of medical distress. Objective Last 24 Hour Vital Signs Date Time Temp Pulse Resp B/P (MAP) Pulse Ox O2 Delivery O2 Flow Rate FiO2 12/30/17 08:00 97.3 76 18 111/73 98 Room Air 97.3 12/30/17 04:37 98.7 75 17 109/69 99 98.7 12/30/17 00:08 98.1 63 18 109/64 98 98.1 12/29/17 23:50 98.2 12/29/17 22:51 98.2 12/29/17 20:00 98.2 68 19 106/70 98 98.2 12/29/17 20:00 98.2 87 19 106/70 98 Room Air 98.2 12/29/17 16:52 97.5 12/29/17 16:00 97.6 80 17 131/70 98 Room Air 97.6 12/29/17 15:53 97.5 12/29/17 13:22 97.5 12/29/17 12:00 98.6 84 18 130/64 98 Room Air 98.6 12/29/17 12:00 17 Intake and Output 6/4/18 6/5/18 19:00 07:00 Intake Total 375 ml 800 ml Output Total 450 ml 850 ml Balance -75 ml -50 ml Intake Oral 800 ml IV Total 375 ml Output Urine Total 700 ml Other 450 ml 150 ml # Voids 2 Height (Feet): 5 Height (Inches): 7.00 Weight (Pounds): 120 General Appearance: no apparent distress EENT: PERRL/EOMI Neck: non-tender Cardiovascular: normal peripheral pulses Respiratory/Chest: chest wall non-tender Abdomen: normal bowel sounds Caleb Nava MD Dec 30, 2017 10:49
--- NOTE | 2017-12-30 12:36 | Infectious Diseases Prog Note ---
Assessment/Plan Assessment/Plan Assessment: Long standing Severe UC Colorectal CA -intraop biopsy +adenocarcinoma (incidental finding upon surgical exploration) -s/p total abdominal colectomy and brook ileostomy creation 12/25 -OR findings:The appendix was fairly dilated and abnormal and just distal on the ascending colon, there was a palpable mass. In the mesentery of this colon , there was some palpable lymph nodes. At this time, pathology was called who entered the room and biopsy of the mass were performed identifying it to be adenocarcinoma Leukocytosis, likely reactive/post-op- resolved FTT 2ry to above Afebrile sclerosing cholangitis Plan: -Continue to monitor off abx -12/27 SP Unasyn and Flagyl #4 (stella-op) -Monitor CBC/BMP, temperatures -wound care -aspiration precautions -discharge planned for tomorrow Thank you for this consultation. Will continue to follow along with you. Discussed with RN Subjective Allergies: Coded Allergies: No Known Allergies (Unverified , 08/29/17) Subjective afebrile No leukocytosis off abx discahrge planning Objective Vital Signs Last 24 Hour Vital Signs Date Time Temp Pulse Resp B/P (MAP) Pulse Ox O2 Delivery O2 Flow Rate FiO2 12/30/17 12:00 97.9 92 18 116/69 97 97.9 12/30/17 08:00 97.3 76 18 111/73 98 Room Air 97.3 12/30/17 04:37 98.7 75 17 109/69 99 98.7 12/30/17 00:08 98.1 63 18 109/64 98 98.1 12/29/17 23:50 98.2 12/29/17 22:51 98.2 12/29/17 20:00 98.2 68 19 106/70 98 98.2 12/29/17 20:00 98.2 87 19 106/70 98 Room Air 98.2 12/29/17 16:52 97.5 12/29/17 16:00 97.6 80 17 131/70 98 Room Air 97.6 12/29/17 15:53 97.5 12/29/17 13:22 97.5 Height (Feet): 5 Height (Inches): 7.00 Weight (Pounds): 120 Objective General Appearance: WD/WN, no apparent distress, alert Lines, tubes and drains: PICC HEENT: normocephalic, atraumatic, anicteric, mucous membranes moist, PERRL Neck: normal inspection Respiratory/Chest: lungs clear, normal breath sounds, no respiratory distress, no accessory muscle use Cardiovascular/Chest: normal peripheral pulses, normal rate Abdomen: normal bowel sounds, non tender, soft, no organomegaly, no mass; surgical dressings in place, ostomy in palce Extremities: normal range of motion, non-tender, normal inspection, no calf tenderness, normal capillary refill, non-pitting Skin Exam: normal pigmentation, warm/dry Current Medications Medications (Trade) Dose Ordered Sig/Felipe Route PRN Reason Start Time Stop Time Status Last Admin Dose Admin Acetaminophen (Tylenol) 650 mg Q6H PRN ORAL MILD BRKTHRU PAIN / T> 100.5 12/25/17 14:45 01/24/18 14:44 12/28/17 21:30 Acetaminophen/ Hydrocodone Bitart ([place] 5/325) 2 tab Q4H PRN ORAL Moderate Pain (Pain Scale 4-6) 12/29/17 13:15 01/05/18 13:14 12/29/17 22:51 Al Hydroxide/Mg Hydroxide (Mylanta) 15 ml Q6H PRN ORAL DYSPEPSIA 12/25/17 14:45 01/24/18 14:44 Chlorhexidine Gluconate (Renée-Hex 2%) 1 applic DAILY@1999 TOPIC 12/26/17 20:00 01/25/18 19:59 12/29/17 20:30 Diphenhydramine HCl (Benadryl) 12.5 mg Q6H PRN IVP Itching/Pruritis 12/25/17 14:45 01/24/18 14:44 Docusate Sodium (Colace) 100 mg TWICE A DAY ORAL 12/29/17 18:00 01/28/18 17:59 12/30/17 08:20 Heparin Sodium (Porcine) (Heparin 5000 units/ml) 5,000 units EVERY 8 HOURS SUBQ 12/26/17 14:00 01/25/18 13:59 12/30/17 05:41 Ibuprofen (Motrin) 600 mg Q6H PRN ORAL Breakthrough Pain 12/28/17 18:00 01/27/18 17:59 12/29/17 15:53 Magnesium Hydroxide (Mom) 30 ml BIDPRN PRN ORAL Constipation 12/25/17 14:45 01/24/18 14:44 Ondansetron HCl (Zofran) 4 mg Q6H PRN IVP Nausea & Vomiting 12/25/17 14:45 01/24/18 14:44 12/28/17 15:42 Zolpidem Tartrate (Ambien) 5 mg HSPRN PRN ORAL Insomnia 12/24/17 11:15 12/31/17 11:14 12/29/17 00:11 Fatimah Steen M.D. Dec 30, 2017 12:36
[2017-12-30] MEDS: Norco 5mg/325mg tab ORAL PRN (13:13)
--- NOTE | 2017-12-30 16:30 | General Progress Note ---
Progress Note Progress Note Surgery: doing well. improving. no n/v/f/c. tolerating diet. good output of ileostomy. wound c/d/i plan for d/c tomorrow. Gareth Hodge Dec 30, 2017 16:30
[2017-12-30] MEDS: Dyna-Hex 2% Top Sol 2oz TOPIC SCH (20:08)
[2017-12-31 04:00] VITALS: BP 111/74
[2017-12-31] MEDS: Heparin 5000 units/ml inj SUBQ SCH (05:55)
[2017-12-31] MEDS: Norco 5mg/325mg tab ORAL PRN (05:58)
[2017-12-31 08:00] VITALS: BP 116/73
[2017-12-31] MEDS: Docusate 100mg cap ORAL SCH (08:36)
[2017-12-31] MEDS ORDERED: NORCO 5-325 TA1 EACH ORAL (11:53)
[2017-12-31] MEDS ORDERED: COLACE100 MG ORAL (11:53)
[2017-12-31] MEDS ORDERED: IBUPROFEN100 M2 PO (11:54)
[2017-12-31 12:00] VITALS: BP 107/64
--- NOTE | 2017-12-31 12:19 | General Progress Note ---
Progress Note Progress Note Surgery: doing well. pain improved. no n/v/f/c. tolerating diet. ambulatory. ostomy viable. wound c/d/i. path reviewed. case/care discussed. d/c home Rx written f/u with me next week for staple removal f/u with oncology as well remove picc Gareth Hodge Dec 31, 2017 12:19
--- NOTE | 2017-12-31 12:43 | General Progress Note ---
Assessment/Plan Status: stable Assessment/Plan ASSESSMENT AND RECS: 1. Right adenocarcinoma Stage 3B pathology report reviewed --> The patient may need outpatient PET scan. --> in addition review pathology here in-house --> given stage 3b needs 6 months of either FOLFOX, XELOX, 5FU/LV depending on what he is able to tolerate, may consider avastin --> have contacted him to come into office, left a voicemail on the number in the chart --> awaiting call back, and he has my business card, I gave it to him during his stay and to his as well 2. Anemia due to underlying chronic disease. Obtain anemia workup, folic acid and TSH --> anemia workup has been reviewed --> hgb goal is >7 3. Ulcerative colitis and sclerosing cholangitis. Further monitoring with primary team. --> fluids on prn basis 4. Failure to thrive, likely related to recent ulcerative colitis flare, status post surgery. 5. Total abdominal colostomy, status post [place] ileostomy 6. Leukocytosis, elevated, improving 7. Stable for dc Subjective Date patient seen: Dec 31, 2017 Allergies: Coded Allergies: No Known Allergies (Unverified , 08/29/17) All Systems: reviewed and negative except above Subjective Pt awake and alert. No signs of medical distress. Objective Last 24 Hour Vital Signs Date Time Temp Pulse Resp B/P (MAP) Pulse Ox O2 Delivery O2 Flow Rate FiO2 12/31/17 08:00 97.7 82 20 116/73 97 Room Air 97.7 12/31/17 04:00 97.8 86 19 111/74 96 Room Air 97.8 12/30/17 23:54 99.0 99 18 124/80 98 Room Air 99.0 12/30/17 20:00 98.6 92 19 118/75 96 Room Air 98.6 12/30/17 16:00 97.7 88 18 116/69 99 Room Air 97.7 Intake and Output 12/30/17 12/31/17 19:00 07:00 Intake Total 600 ml 100 ml Output Total 200 ml 200 ml Balance 400 ml -100 ml Intake Oral 600 ml 100 ml Other 200 ml 200 ml # Voids 2 2 Height (Feet): 5 Height (Inches): 7.00 Weight (Pounds): 117 General Appearance: no apparent distress EENT: PERRL/EOMI Neck: non-tender, supple Cardiovascular: normal peripheral pulses Respiratory/Chest: chest wall non-tender Abdomen: soft Caleb Nava MD Dec 31, 2017 12:43
--- NOTE | 2018-01-01 12:13 | Discharge Summary ---
Discharge Summary Discharge Summary _ DATE OF ADMISSION: 12/24/2017 DATE OF DISCHARGE: 12/31/2017 CONSULTANTS: Dr. Caleb Steen BRIEF HOSPITAL COURSE: Patient is a 42-year-old male, with history of long-standing ulcerative colitis , managed by his director of marketing and promotions Dr. Nica Parikh. During his most recent colonoscopy, he was noted to have worsening colitis with biopsies demonstrating dysplastic changes. His quality of life has changed, he had a hard time keeping his weight, and had failure to thrive as an adult. His symptoms were life altering. He had a CT scan that demonstrated severe pancolitis. His symptoms were constant, he had abdominal discomfort and multiple bowel movements per day. His symptoms were so severe that he sometimes is unable to leave the house. He was initially seen in the office and worked up over the course of a few months for an elective surgery for continent ileostomy scheduled on 12/25/2017. He was admitted and was prepped for surgery. A PICC line was inserted to the left upper extremity. Chest x-ray showed no acute findings. He was placed on NPO and was started on preop IV antibiotic treatment with Unasyn and Flagyl. On 12/25/2017, he underwent laparoscopic-assisted total abdominal colectomy due to creation of [place] end ileostomy. Intraoperatively, the appendix was noted to be fairly dilated and abnormal and just distal on the ascending colon, there was a palpable mass. In the mesentery of this colon, there were palpable lymph nodes. Pathology was called and biopsy of the mass showed to be adenocarcinoma , which is a new finding that was not identified even with preoperative workup. At this time, goals of case has shifted into a cancer procedure rather than treatment of ulcerative colitis. A decision was made not to perform APR and a continent ileostomy or pouch given patient was recently diagnosed and found to have adenocarcinoma. Decision was made to proceed with a conventional [place] ileostomy, which was placed on the right lower quadrant. Postoperatively, he was seen by infectious disease specialist and was continued on Unasyn and Flagyl. Oncologist was consulted. Pathology result showed right adenocarcinoma stage IIIB. He will eventually need outpatient PET scan and will need 6 months of chemotherapy treatment. He was given pain management. Diet was advanced. He was given ostomy care. He was tolerating diet well with improved pain. There was no nausea, no vomiting, no fever, no chills. Ostomy was viable with good output. Wound was clean dry and intact. He was eventually cleared for discharge home to follow up with oncology. PICC line was discontinued. FINAL DIAGNOSES: Right adenocarcinoma stage IIIB Long-standing severe ulcerative colitis Failure to thrive secondary to above Sclerosing cholangitis Anemia due to underlying chronic disease PRODEDURE: Status post laparoscopic assisted total abdominal colectomy due to creation of [place] end ileostomy on 12/25/2017 DISPOSITION: Patient was discharged home. DISCHARGE MEDICATIONS: Refer to Discharge Medication List. DISCHARGE INSTRUCTIONS: Follow up next week for staple removal. Follow-up with oncology. I have been assigned to dictate discharge summary on this account, and I was not involved in the patient's management. Rena Garcia NP Jan 01, 2018 12:13
--- NOTE | 2018-01-02 12:47 | Cardiology Report ---
APPROVED REPORT EKG Measurement Heart [id number] Normal sinus rhythm Normal ECG
== END 2017-12-31 12:43 | disposition home or self-care (01) | DRG 330 ==
LOC: 3E 09:52
PROC: 02HV33Z Insertion of Infusion Device into Superior Vena Cava, Percutaneous Approach (ICD-10-PCS; principal; 2017-12-24)
PROC: B518ZZA Fluoroscopy of Superior Vena Cava, Guidance (ICD-10-PCS; principal; 2017-12-24)
PROC: 0DTE0ZZ Resection of Large Intestine, Open Approach (ICD-10-PCS; 2017-12-25)
PROC: 0D1B0Z4 Bypass Ileum to Cutaneous, Open Approach (ICD-10-PCS; 2017-12-25)
DX: K51.00 Ulcerative (chronic) pancolitis without complications (principal); K83.0 Cholangitis; C18.2 Malignant neoplasm of ascending colon; R62.7 Adult failure to thrive; D64.9 Anemia, unspecified; D72.829 Elevated white blood cell count, unspecified
CPT/HCPCS: 36415; 36569; 71045; 76937; 80048; 80053; 81003; 82378; 82728; 82746; 83540; 83550; 85025; 85610; 85730; 86850; 86900; 86901; 87081; 93005; 94003; 94150; J1815; J2250; J2405; J8499

== ENCOUNTER 2019-05-28 07:55 | Day surgery (SDC) | payer MEDICARE, BC ==
[2019-05-28] VITALS (8 sets, daily range): BP systolic 98–135; BP diastolic 64–82
[~2019-05-28] VITALS: Ht 170.2 cm; Wt 76.7 kg
--- NOTE | 2019-05-28 06:18 | Anethesia Preoperative Eval ---
Anesthesia Pre-op PMH/ROS General Date of Evaluation: May 28, 2019 Time of Evaluation: 06:16 Anesthesiologist: jennifer ASA Score: ASA 3 Mallampati Score Class I : Soft palate, uvula, fauces, pillars visible Class II: Soft palate, uvula, fauces visible Class III: Soft palate, base of uvula visible Class IV: Only hard plate visible Mallampati Classification: Class II Surgeon: brittany Diagnosis: gerd, abdominal pain Surgical Procedure: egd/colonoscopy Social History: smoking - former smoker Family History: no anesthesia problems Allergies: Coded Allergies: No Known Allergies (Unverified , 08/29/17) Medications: see eMAR Patient NPO?: Yes Past Medical History Gastrointestinal/Genitourinary: Reports: GERD, other - liver disease, primary sclerosing cholangitis, ulcerative colitis Neurologic/Psychiatric: Reports: depression/anxiety Musculoskeletal/Integumentary: Reports: other - shingles PSxH Narrative: colectomy Anesthesia Pre-op Phys. Exam Physician Exam Last Vital Signs Date Time Temp Pulse Resp B/P (MAP) Pulse Ox O2 Delivery O2 Flow Rate FiO2 05/28/19 08:39 Room Air 05/28/19 08:34 97.8 66 18 121/82 99 Constitutional: NAD Neurologic: CN 2-12 intact Cardiovascular: RRR Respiratory: CTA Gastrointestinal: other - colostomy Airway Exam Mallampati Score: Class II MO: full Neck: flexible TMD: 2fb ROM: full Anesthesia Pre-op A/P Risk Assessment & Plan Assessment: asa3 Plan: mac Status Change Before Surgery: No Pre-Antibiotics Drug: Guillermina Zhu MD May 28, 2019 06:18
[~2019-05-28 07:55] MED LIST changes: +Atropine Inj 1mg/10ml Syr IV PRN; +COLACE100 MG ORAL; +DiphenhydrAMINE 50mg/ml Inj IVP PRN; +IBUPROFEN100 M2 PO; +LR 1000ml 1,000 ML IVLG SCH; +Midazolam 2mg/2ml Inj IVP PRN; +NORCO 5-325 TA1 EACH ORAL; +fentaNYL 100 mcg/2 mL IV PRN
--- NOTE | 2019-05-28 08:08 | Short Stay Surgery H&P ---
History of Present Illness History of Present Illness Chief Complaint Patient hasz history of c0olon cancer and colitis is for follow up for abdominaal pains and screening for recurrence of colon cancer. HPI Arsh Grey is a 44 year old male who was admitted on for Gerds, Abdominal Pain/colon screening Patient History Allergies: Coded Allergies: No Known Allergies (Unverified , 08/29/17) PAST MEDICAL HISTORY: (1) History of colectomy (2) Colon cancer (3) Hyperlipidemia (4) Cholangitis (5) Colitis Medication History Scheduled Docusate Sodium* (Colace*), 100 MG ORAL TWICE A DAY, (Reported) Ibuprofen (Ibuprofen), 400 MG PO Q6HR, (Reported) Scheduled PRN Hydrocodone Bit/Acetaminophen 5-325* ([place] 5-325*), 1 TAB ORAL Q4H PRN for For Pain, (Reported) Review of Systems Cardiovascular: Reports: no symptoms Respiratory: Reports: no symptoms Skeletal: Reports: osteroarthritis Gastrointestinal: Reports: gastro esophageal reflux disease Genitourinary: Reports: no symptoms Neurologic: Reports: no symptoms Endocrine: Reports: no symptoms Hematologic: Reports: no symptoms Physical Exam Skin: normal HENT: normal Heart: normal Lungs: normal Abdomen: normal Extremities: normal Genitourinary: normal Plan Plan of Care Upper and lower GI endoscopy with biopsies. Preop Interventions None. Summary of Findings See the reports Attestation Are the patient's medical conditions optimized for surgery? Attestation Response: yes Nica Parikh MD May 28, 2019 08:08
--- NOTE | 2019-05-28 08:09 | Pre-Procedure Note/Attestation ---
Pre-Procedure Note/Attestation Complete Prior to Procedure Planned Procedure: left Procedure Narrative: Examination of the upper and the lower GI tract via endoscopy Indications for Procedure Pre-Operative Diagnosis: R/O Gastritis/colitis/recurrence of colon cancer and polyps. Attestation I attest that I discussed the nature of the procedure; its benefits; risks and complications; and alternatives (and the risks and benefits of such alternatives ), prior to the procedure, with the patient (or the patient's legal automobile rental representative). I attest that, if there was a reasonable possibility of needing a blood transfusion, the patient (or the patient's legal automobile rental representative) was given the [facility] standardized written summary, pursuant to the Daljit Orofino Blood Safety Act ([place] Health and Safety Code # 1645, as amended). I attest that I re-evaluated the patient just prior to the surgery and that there has been no change in the patient's H&P, except as documented below: Nica Parikh MD May 28, 2019 08:09
[2019-05-28] MEDS ORDERED: LR 1000ml ONE (08:30)
[2019-05-28] MEDS ORDERED: Lidocaine 1% MPF 10mg/ml 5ml ONE (08:30)
[2019-05-28] MEDS ORDERED: Propofol 200mg/20ml IV ONE (08:30)
[2019-05-28] MEDS ORDERED: URSODIOL300 MG ORAL (08:37)
--- NOTE | 2019-05-28 09:21 | Endoscopy Procedure Note ---
Endoscopy Procedure Note General Indication for Procedure: GERDs and history of colon CA, for screening Procedures Performed: EGD - Minimal gastritis of the antrum, biopsy obtained from prepyloric area., colonoscopy - S/P Colostomy, partial colonoscopy done due to very difficult and redundant colon with intra-abdominal adhesions. Partial exam did not reveal any evidence of colitis or tumors/polyps. Specimen: yes Pt Tolerated Procedure Well: Yes Estimated Blood Loss: none Anesthesia Anesthesiologist: Dr. Greenberg Anesthesia: moderate sedation Medications Medication Given: see anesthesia record Inserted Devices Implant(s) used?: No Quality Quality of Bowel Preparation: Excellent Did scope reach the cecum?: No If no,where did scope reach?: Partially in a part of the colon. Why scope didn't reach cecum: Hx of Colon resection Was there any complications?: No GI Core Measures 50 yrs or older w/o bx or poly: No 10yrs. F/U recommended: Yes If not recommended, why?: <3yrs. since last colonoscopy: Yes Med reason:<3 yrs.: System Reason:<3 yrs.: Last colonoscopy >= to 3yrs: No Nica Parikh MD May 28, 2019 09:21
--- NOTE | 2019-05-28 09:22 | Discharge Instructions ---
Discharge Instructions Discharge Instructions Follow up with: Visit the doctor after 2 weeks. For Congestive Heart Failure Reminder Report to your physician any weight gain of 5 pounds or more in one week. Nica Parikh MD May 28, 2019 09:22
--- NOTE | 2019-05-28 09:46 | Immediate Post-Op Evaluation ---
Immediate Post-Op Evalulation Immediate Post-Op Evalulation Procedure: egd/colonoscopy w/bx Date of Evaluation: May 28, 2019 Time of Evaluation: 09:39 IV Fluids: 375ml lr Blood Products: none Estimated Blood Loss: negligible Blood Pressure Systolic: 116 Blood Pressure Diastolic: 78 Pulse Rate: 81 Respiratory Rate: 18 O2 Sat by Pulse Oximetry: 100 Temperature (Fahrenheit): 98.5 Pain Score (1-10): 0 Nausea: No Vomiting: No Complications none Patient Status: awake, reacts, patent Hydration Status: adequate Drug: Guillermina Zhu MD May 28, 2019 09:46
--- NOTE | 2019-05-28 09:47 | 48 Hour Post Anesthesia Eval ---
Post Anesthesia Evaluation Procedure: egd/colonoscopy w/bx Date of Evaluation: May 28, 2019 Time of Evaluation: 09:41 Blood Pressure Systolic: 113 0: 66 Pulse Rate: 84 Respiratory Rate: 18 Temperature (Fahrenheit): 98.5 O2 Sat by Pulse Oximetry: 100 Airway: patent Nausea: No Vomiting: No Pain Intensity: 0 Hydration Status: adequate Cardiopulmonary Status: stable Mental Status/LOC: patient returned to baseline Post-Anesthesia Complications: none Follow-up care needed: N/A Guillermina Greenberg MD May 28, 2019 09:47
--- NOTE | 2019-05-28 10:00 | Operative Note - Dictated ---
DATE OF OPERATION: 05/28/2019 SURGEON: Nica Parikh M.D. PROCEDURE: Partial colonoscopy. PREOPERATIVE DIAGNOSES: 1. History of colitis and colon carcinoma, status post partial colectomy. 2. History of sclerosing cholangitis and Crohn disease, status post colostomy. POSTOPERATIVE DIAGNOSIS: Significantly difficult procedure due to the highly redundant colon and intraabdominal adhesions. Partial colonoscopy revealed no evidence of recurrence of tumor or colitis or polyps etc. MEDICATION USED: Per Dr. De Anda, anesthesiologist. INSTRUMENT: GIF Olympus video colonoscope, pediatric. DESCRIPTION OF PROCEDURE: The patient after arriving in endoscopy unit, was told about risks and benefits of the procedure, which he accepted and signed the consent form. The patient did have history of partial colectomy and colostomy bag at this time. Therefore, the procedure was done through the colostomy bag. The patient was put on a supine position at this time and a pediatric scope gradually introduced into the ostium through the opening of the colon in the abdomen. The scope gradually was advanced through the very redundant colon with different maneuvers. However, there was high redundancy and also significant adhesions in the abdomen, which prevented the scope to go forward. Approximately 25 to 30 cm of the colon could be examined and beyond that area was impossible. Therefore, the scope was gradually pulled out and the procedure terminated. In this process, there was no any evidence of recurrence of colitis, polyps, tumors etc. The patient tolerated the procedure well and left the endoscopy room in a good condition. Nica Parikh M.D. DR: PATY JOB#: [id number] CC:
--- NOTE | 2019-05-28 13:45 | Operative Note - Dictated ---
DATE OF OPERATION: 05/28/2019 SURGEON: Nica Parikh M.D. PROCEDURE: Esophagogastroduodenoscopy with biopsy. PREOPERATIVE DIAGNOSIS: History of gastroesophageal reflux and gastritis. POSTOPERATIVE DIAGNOSIS: Minimal gastritis of the antrum. Biopsy was taken from prepyloric area, otherwise completely normal upper GI endoscopy. MEDICATION USED: Per Dr. De Anda, anesthesiologist. INSTRUMENT: GIF Olympus upper GI video endoscope. DESCRIPTION OF PROCEDURE: The patient after arriving endoscopy unit, was told about risks and benefits of the procedure, which he accepted and signed informed consent. At this time, he was put in the left lateral decubitus position. After adequate IV sedation, the scope was gently passed through the cricopharyngeal area, was lodged into the esophagus and gradually advanced towards gastroesophageal junction. The entire length of the esophagus looked normal and also the GE junction looked completely normal without any evidence of Spangler's or hiatal hernia. At this time, the scope was advanced into the stomach. Gastric cavity was distended with insufflation of air and gradually the areas of the fundus and the body and the antrum were examined. The only findings were minimal inflammatory process in the antrum consistent with antritis, which was biopsied from prepyloric area. Otherwise, the rest of the stomach seemed to be completely normal. There was no evidence of ulcers, tumors, polyps, hemangiomas, etc. A retroflexion maneuver was also applied. The area of the gastroesophageal junction was examined in a closer fashion, which revealed normal findings. At this time, the scope was advanced into the pylorus. First and second portion of duodenum were also found to be completely normal. At this time, the scope was pulled out and the procedure was terminated. The patient tolerated the procedure well and left the endoscopy room in a good condition. Nica Parikh M.D. DR: JULIO C JOB#: [id number] CC:
== END 2019-05-28 10:50 | disposition home or self-care (01) ==
LOC: GAS 07:55
DX: K29.70 Gastritis, unspecified, without bleeding (principal); K21.9 Gastro-esophageal reflux disease without esophagitis; Z85.038 Personal history of other malignant neoplasm of large intestine; Z90.49 Acquired absence of other specified parts of digestive tract; E78.5 Hyperlipidemia, unspecified; F32.9 Major depressive disorder, single episode, unspecified; F41.9 Anxiety disorder, unspecified; Z87.891 Personal history of nicotine dependence
CPT/HCPCS: 43239; 44388; J2704; 94003; 94150